=== PATIENT | female | born 1940 | race Caucasian/White ===

== ENCOUNTER 2018-08-26 09:09 | Inpatient (IN) | payer OTHER ==
[2018-08-20 18:32] VITALS: BMI 35.6
--- NOTE | 2018-08-26 07:19 | HP ---
Admitting History and Physical - Admission Chief Complaint: right knee osteoarthritis x years History of Present Illness: 78-year-old female presents in regard to her right knee. Long-standing history of right knee osteoarthritis. Patient complains of pain, limited range of motion , difficulty ambulating, and difficulty with activities of daily living. Patient has failed conservative treatment options including PO medications, activity modification, exercise program, and injections. At this point, patient would like to proceed with surgical intervention-right total knee arthroplasty MAKOplasty. History Source: Patient - Past Medical History Cardiovascular: Yes: HTN, Hyperlipdemia Psych: Yes: Depression Musculoskeletal: Yes: Osteoarthritis Endocrine: Yes: Diabetes Mellitus, Hypothyroidism - Past Surgical History Past Surgical History: Yes: Thoracotomy Additional Past Surgical History: see written history and physical. - Smoking History Smoking history: Never smoked Have you smoked in the past 12 months: No - Alcohol/Substance Use Hx Alcohol Use: No Home Medications - Allergies Allergies/Adverse Reactions: Allergies Allergy/AdvReac Type Severity Reaction Status Date / Time No Known Allergies Allergy Verified 08/20/18 18:32 - Home Medications Home Medications: Ambulatory Orders Atorvastatin Calcium [Lipitor] 10 mg PO HS 08/20/18 Cholecalciferol (Vitamin D3) [Vitamin D3] 2,000 unit PO DAILY 08/20/18 Escitalopram Oxalate [Lexapro -] 10 mg PO DAILY 08/20/18 Glipizide [Glucotrol Xl] 2.5 mg PO DAILY 08/20/18 Levothyroxine [Synthroid -] 75 mcg PO DAILY 08/20/18 Meloxicam 15 mg PO DAILY 08/20/18 Metoprolol Succinate [Toprol Xl] 25 mg PO DAILY 08/20/18 Review of Systems - Review of Systems Musculoskeletal: reports: Crepitus (righ knee), Decreased ROM (right knee), Joint Pain (right knee) Physical Examination Constitutional: Yes: Well Nourished, No Distress Eyes: Yes: Conjunctiva Clear HENT: Yes: Atraumatic, Normocephalic Neck: Yes: Supple Cardiovascular: Yes: Regular Rate and Rhythm Respiratory: Yes: Regular Gastrointestinal: Yes: Soft ...Rectal Exam: Yes: Deferred Musculoskeletal: Yes: Joint Stiffness (right knee), Joint Swelling (right knee) Assessment/Plan 78-year-old female presents in regard to her right knee. Long-standing history of right knee osteoarthritis. Patient complains of pain, limited range of motion , difficulty ambulating, and difficulty with activities of daily living. Patient has failed conservative treatment options including PO medications, activity modification, exercise program, and injections. At this point, patient would like to proceed with surgical intervention-right total knee arthroplasty MAKOplasty. pros, cons, risks, benefits, and alternatives of a right total knee arthroplasty were discussed with the patient at length. Patient confirms or understanding, and consents to proceed with a right total knee arthroplasty MAKOplasty.
[~2018-08-26 09:09] MED LIST: CEFAZOLIN 2 GM in DEXTROSE 5%-WATER - 50 ML IVPB ONE; TRANEXAMIC ACID 1000 MG/10 ML VIAL IVPUSH ONE
[2018-08-26] MEDS: oxyCODONE HCL 10 MG SUSTAINED ACTING TABLET PO ONE (09:50)
[2018-08-26] MEDS: CELECOXIB 200 MG CAPSULE PO ONE (09:50)
[2018-08-26] MEDS: PANTOPRAZOLE 40 MG TABLET (FP) PO ONE (09:50)
[2018-08-26] MEDS: GABAPENTIN 300 MG CAPSULE (FP) PO ONE (09:50)
[2018-08-26] MEDS ORDERED: VANCOMYCIN 1,000 MG VIAL (RESTRICTED TO ID ONLY) ONE (10:39)
[2018-08-26] MEDS ORDERED: ceFAZolin SODIUM 1 GM VIAL ONE ×2 (10:39→15:03)
[2018-08-26] MEDS ORDERED: TRANEXAMIC ACID 1000 MG/10 ML VIAL ONE ×2 (10:59→15:03)
[2018-08-26] MEDS ORDERED: BUPIVACAINE LIPOSOME/PF (EXPAREL) 266 MG/20 ML VIAL ONE (14:22)
[2018-08-26] MEDS ORDERED: SODIUM CHLORIDE 0.9% P/F 10 ML VIAL IJ ONE (14:22)
[2018-08-26] MEDS ORDERED: MIDAZOLAM HCL 2 MG/2 ML SINGLE DOSE VIAL ONE ×2 (14:22→16:01)
[2018-08-26] MEDS ORDERED: BUPIVACAINE HCL/PF 0.5% (5MG/ML) 10 ML VIAL ONE (15:01)
[2018-08-26] MEDS ORDERED: PROPOFOL 20 ML ONE (16:01)
--- NOTE | 2018-08-26 18:00 | OP ---
Operative Note - Note: Operative Date: 08/26/18 Pre-Operative Diagnosis: Right knee OA Operation: right YENNY TKA Post-Operative Diagnosis: Same as Pre-op Surgeon: Jong Collazo Director Of Restaurants: Nubia Marti Anesthesia: Spinal Estimated Blood Loss (mls): 150
[2018-08-26] MEDS ORDERED: KETOROLAC TROMETHAMINE 30 MG/1 ML VIAL ONE (18:01)
[2018-08-26] MEDS ORDERED: ONDANSETRON 4 MG/2 ML VIAL IVPUSH PRN ×2 (18:01→18:23)
[2018-08-26] MEDS ORDERED: oxyCODONE HCL 5 MG TABLET PO PRN ×2 (18:01)
[2018-08-26] MEDS ORDERED: PROMETHAZINE HCL 25 MG/1 ML VIAL IVPUSH PRN (18:01)
[2018-08-26] MEDS ORDERED: traMADol HCL 50 MG TABLET ONE (18:02)
[2018-08-26] MEDS ORDERED: ACETAMINOPHEN INJECTION 100 ML IVPB ONE (18:02)
[2018-08-26] MEDS: KETOROLAC TROMETHAMINE 30 MG/1 ML VIAL IVPUSH SCH ×2 (18:15→23:52)
[2018-08-26] MEDS ORDERED: ACETAMINOPHEN 1000 MG/100 ML VIAL (NON FORMULARY) IVPB ONE (18:21)
[2018-08-26] MEDS ORDERED: MAGNESIUM HYDROX 2400MG/30ML ORAL SUSPENSION 30 ML CUP PO PRN (18:23)
[2018-08-26] MEDS ORDERED: MAG HYDROX/AL HYDROX/SIMETH 30 ML UNIT-DOSE CUP PO PRN (18:23)
[2018-08-26] MEDS: traMADol HCL 50 MG TABLET PO SCH ×2 (18:25→23:51)
[2018-08-26] MEDS ORDERED: LACTATED RINGERS SOLUTION 1,000 ML IV SCH (18:30)
[2018-08-26] MEDS: CELECOXIB 200 MG CAPSULE PO SCH (21:18)
[2018-08-26] MEDS: GABAPENTIN 300 MG CAPSULE (FP) PO SCH (21:18)
[2018-08-26] MEDS: SENNOSIDES/DOCUSATE COMBO (SENNA PLUS) TABLET (UD) PO SCH (21:19)
[2018-08-26] MEDS: oxyCODONE HCL 10 MG SUSTAINED ACTING TABLET PO SCH (21:19)
[2018-08-26] MEDS: ASCORBIC ACID 500 MG TABLET (FP) PO SCH (21:19)
[2018-08-26] MEDS: ATORVASTATIN CA 10 MG TABLET (FP) PO SCH (21:19)
[2018-08-26] MEDS: ACETAMINOPHEN 325 MG TABLET (FP) PO SCH (23:51)
[2018-08-27] MEDS: CEFAZOLIN 2 GM/D5W 2 GM/50 ML ML IVPB SCH ×2 (01:02→10:00)
[2018-08-27] MEDS ORDERED: DEXAMETHASONE SOD PHOSPHATE 10 MG/1 ML VIAL IVPB ONE (02:00)
[2018-08-27] MEDS: traMADol HCL 50 MG TABLET PO SCH ×3 (06:38→19:06)
[2018-08-27] MEDS: LEVOTHYROXINE NA 75 MCG TABLET (FP) PO SCH (06:39)
[2018-08-27] MEDS: glipiZIDE-XL 2.5 MG TAB.ER.24 PO SCH (06:39)
[2018-08-27] MEDS: ACETAMINOPHEN 325 MG TABLET (FP) PO SCH ×3 (06:39→18:06)
[2018-08-27] MEDS: KETOROLAC TROMETHAMINE 30 MG/1 ML VIAL IVPUSH SCH ×2 (06:39→12:38)
[2018-08-27] MEDS: ASPIRIN 325 MG TABLET PO SCH (08:00)
[2018-08-27 08:07] LABS: ANION GAP 9 MMOL/L (8-16); BLOOD UREA NITROGEN 19 mg/dl (7-18); CALCIUM 8.9 mg/dl (8.5-10); CHLORIDE 105 mmol/L (98-107); CO2 20 mmol/L (21-32); CREATININE 0.7 mg/dl (0.55-1.3); GLUCOSE,RANDOM 240 mg/dl (74-106); POTASSIUM 4.2 mmol/L (3.5-5.1); SODIUM 134 mmol/L (136-145)
[2018-08-27 08:18] LABS: HEMATOCRIT 37.4 % (32.4-45.2); HEMOGLOBIN 12.6 GM/dl (10.7-15.3); MCH 30.6 pg (25.7-33.7); MCHC 33.8 g/dl (32.0-36.0); MEAN CELL VOLUME 90.7 fl (80-96); MEAN PLT VOLUME 8.3 fl (7.5-11.1); PLATELET COUNT 224 K/MM3 (134-434); RBC 4.12 M/mm3 (3.60-5.2); RDW 12.8 % (11.6-15.6); WHITE BLOOD COUNT 9.8 K/mm3 (4.0-10.8)
[2018-08-27] MEDS: CELECOXIB 200 MG CAPSULE PO SCH ×2 (09:26→21:53)
[2018-08-27] MEDS: ESCITALOPRAM OXALATE 10 MG TABLET (FP) PO SCH (09:26)
[2018-08-27] MEDS: GABAPENTIN 300 MG CAPSULE (FP) PO SCH ×2 (09:26→21:53)
[2018-08-27] MEDS: oxyCODONE HCL 10 MG SUSTAINED ACTING TABLET PO SCH ×2 (09:26→21:54)
[2018-08-27] MEDS: SENNOSIDES/DOCUSATE COMBO (SENNA PLUS) TABLET (UD) PO SCH ×2 (09:26→21:52)
[2018-08-27] MEDS: metoPROLOL SUCCINATE 25 MG TAB.SR.24H (FP) PO SCH (09:27)
[2018-08-27] MEDS: ASCORBIC ACID 500 MG TABLET (FP) PO SCH ×2 (09:28→21:53)
[2018-08-27] MEDS: RANITIDINE HCL 150 MG TABLET (FP) PO SCH (09:28)
[2018-08-27] MEDS ORDERED: PANTOPRAZOLE 40 MG TABLET (FP) PO SCH (10:00)
--- NOTE | 2018-08-27 17:46 | PN ---
Progress Note (short form) - Note Progress Note: S: Pt. without complaints O: 0/10 pain at rest and with ambulation A/P: POD#1 s/p right tkr 1. continue pain meds as ordered 2. no apparent anesthetic complications
[2018-08-27] MEDS: oxyCODONE HCL 10 MG SUSTAINED ACTING TABLET PO ONE (19:09)
[2018-08-27] MEDS: GABAPENTIN 300 MG CAPSULE (FP) PO ONE (19:09)
[2018-08-27] MEDS: PANTOPRAZOLE 40 MG TABLET (FP) PO ONE (19:09)
[2018-08-27] MEDS: CELECOXIB 200 MG CAPSULE PO ONE (19:09)
[2018-08-27] MEDS: MULTIVITAMINS (DAILY MVI) TABLET (FP) PO SCH (19:27)
--- NOTE | 2018-08-27 21:21 | PN ---
Progress Note (short form) - Note Progress Note: Pt seen and examined. Doing well. Afebrile Selected Entries 08/27/18 08/27/18 08/27/18 20:12 20:41 23:19 Temperature 97.7 F 97.6 F Pulse Rate 60 50 L Respiratory 20 18 Rate Blood Pressure 98/58 L 106/53 L Blood Pressure Supine Position O2 Sat by Pulse 96 Oximetry (%) Oxygen Delivery Room Air Method Laboratory Tests 08/27/18 08/27/18 06:52 06:52 WBC 9.8 Hgb 12.6 Hct 37.4 Plt Count 224 Sodium 134 L Potassium 4.2 Chloride 105 Carbon Dioxide 20 L Anion Gap 9 BUN 19 H Creatinine 0.7 Creat Clearance w eGFR > 60 Random Glucose 240 H Calcium 8.9 Gen: NAD RLE: c/d/i, NVID A/P 78yo female POD#1 s/p R TKA PT/OOB D/C home in AM
[2018-08-27] MEDS: ATORVASTATIN CA 10 MG TABLET (FP) PO SCH (21:53)
--- NOTE | 2018-08-27 23:52 | DS ---
Physical Examination Vital Signs: Vital Signs Temperature 97.6 F 08/27/18 23:19 Pulse Rate 50 L 08/27/18 23:19 Respiratory Rate 18 08/27/18 23:19 Blood Pressure 106/53 L 08/27/18 23:19 O2 Sat by Pulse Oximetry (%) 95 08/27/18 23:19 Labs: CBC, BMP 08/27/18 06:52 08/27/18 06:52 Discharge Summary Reason For Visit: RT KNEE ARTHRITIS Current Active Problems Osteoarthritis of right knee (Acute) Procedures: Principal: right YENNY TKA Hospital Course: Admitted for elective surgery. Procedure performed without complications. Pt received postoperative antibiotic prophylaxis and DVT ppx. Ambulated with physical therapy. Stable for discharge home with outpatient followup. Condition: Stable - Instructions Diet, Activity, Other Instructions: Dr. Collazo - Knee Replacement Instructions Keep the Aquacel dressing on until removed by Dr. Collazo in 10-14 days - it is antibacterial and waterproof and you can shower with it on. Call the office for a follow-up appointment with Dr. Collazo in 10-14 days. Take one Aspirin 325mg daily for 6 weeks to prevent blood clots in your legs. Continue taking Zantac daily for 6 weeks to protect against heartburn and ulcers. Take Cephalexin (antibiotic) 3x/day for 10 days to help prevent skin infection. Take Celebrex 200mg daily for 30 days to reduce swelling and inflammation. Take a multivitamin, stool softener, and extra Vitamin C supplement daily. For pain: *Mild pain (1-3/10): Take 1 Tramadol tablet every 4 hours as needed. Moderate pain (4-6/10): Take 1 Tramadol tablet and 1 Percocet tablet every 4 hours as needed. Severe pain (7-10/10): Take 1 Tramadol tablet and 2 Percocet tablets every 4 hours as needed. Activity: You can put as much weight on the operative leg as you want. Right after you get home, there will be a physical therapist coming to your house to help you walk around and bend/straighten your knee. After your follow-up appointment, you will be sent for more intensive outpatient physical therapy which will include machines and equipment that the home therapist cannot bring to your house. Always use a walker or cane for balance and to prevent falls. Expect to see swelling/bruising from the operative site all the way down to your toes. Wear the compression stocking on the operative side during the day to minimize how much swelling there is in your foot/ankle. Don't wear the stocking at night. You don't have to wear a stocking on the other side. Disposition: [facility]/HOME HEALTH CARE - Home Medications Comprehensive Discharge Medication List: Ambulatory Orders Atorvastatin Calcium [Lipitor] 10 mg PO HS 08/20/18 Cholecalciferol (Vitamin D3) [Vitamin D3] 2,000 unit PO DAILY 08/20/18 Escitalopram Oxalate [Lexapro -] 10 mg PO DAILY 08/20/18 Glipizide [Glucotrol Xl] 2.5 mg PO DAILY 08/20/18 Levothyroxine [Synthroid -] 75 mcg PO DAILY 08/20/18 Metoprolol Succinate [Toprol Xl] 25 mg PO DAILY 08/20/18 Ascorbic Acid [Vitamin C -] 500 mg PO BID tablet 08/27/18 Aspirin [ASA -] 325 mg PO DAILY@0800 tablet 08/27/18 Celecoxib [CeleBREX -] 200 mg PO DAILY #30 capsule 08/27/18 Cephalexin Monohydrate [Keflex -] 500 mg PO TID #30 capsule 08/27/18 Multivitamins [Multivit ([facility] Formulary)] 1 tab PO DAILY tab 08/27/18 Oxycodone HCl/Acetaminophen [Percocet 5-325 mg Tablet] 1 - 2 tab PO Q4H PRN #60 tablet MDD 10 08/27/18 Ranitidine [Zantac -] 150 mg PO DAILY #40 tablet 08/27/18 Sennosides/Docusate Sodium [Pericolace -] 1 tablet PO BID tablet 08/27/18 traMADol HCL [Ultram -] 50 mg PO Q4H PRN #42 tablet MDD 6 08/27/18
[2018-08-28] MEDS: ACETAMINOPHEN 325 MG TABLET (FP) PO SCH ×3 (00:26→11:54)
[2018-08-28] MEDS: traMADol HCL 50 MG TABLET PO SCH ×3 (00:27→11:55)
[2018-08-28 06:24] VITALS: TEMP 97.5
[2018-08-28] MEDS: LEVOTHYROXINE NA 75 MCG TABLET (FP) PO SCH (06:34)
[2018-08-28] MEDS: glipiZIDE-XL 2.5 MG TAB.ER.24 PO SCH (06:34)
[2018-08-28 08:06] LABS: HEMATOCRIT 31.8 % (32.4-45.2); HEMOGLOBIN 10.5 GM/dl (10.7-15.3); MCH 29.9 pg (25.7-33.7); MEAN CELL VOLUME 90.7 fl (80-96); MEAN PLT VOLUME 8.1 fl (7.5-11.1); PLATELET COUNT 213 K/MM3 (134-434); RBC 3.51 M/mm3 (3.60-5.2); RDW 12.7 % (11.6-15.6); WHITE BLOOD COUNT 10.1 K/mm3 (4.0-10.8)
[2018-08-28] MEDS: ASPIRIN 325 MG TABLET PO SCH (08:15)
[2018-08-28 09:21] VITALS: BP 113/50; PULSE 60
[2018-08-28] MEDS: SENNOSIDES/DOCUSATE COMBO (SENNA PLUS) TABLET (UD) PO SCH (09:23)
[2018-08-28] MEDS: CELECOXIB 200 MG CAPSULE PO SCH (09:23)
[2018-08-28] MEDS: ASCORBIC ACID 500 MG TABLET (FP) PO SCH (09:23)
[2018-08-28] MEDS: RANITIDINE HCL 150 MG TABLET (FP) PO SCH (09:23)
[2018-08-28] MEDS: GABAPENTIN 300 MG CAPSULE (FP) PO SCH (09:23)
[2018-08-28] MEDS: metoPROLOL SUCCINATE 25 MG TAB.SR.24H (FP) PO SCH (09:23)
[2018-08-28] MEDS: MULTIVITAMINS (DAILY MVI) TABLET (FP) PO SCH (09:23)
[2018-08-28] MEDS: ESCITALOPRAM OXALATE 10 MG TABLET (FP) PO SCH (09:23)
[2018-08-28] MEDS: oxyCODONE HCL 10 MG SUSTAINED ACTING TABLET PO SCH (09:24)
--- NOTE | 2018-08-28 16:43 | PATH ---
Surgical Pathology Report Patient Name: MARTINA PATE Med. Rec. #: [id number] /Age/Gender: 1940 (Age: 78) / F Account: [id number] Location: REPLACED BY [facility] Taken: 08/26/2018 Received: 08/26/2018 Reported: 08/28/2018 Physicians: Jong Collazo M.D. Specimen(s) Received RIGHT KNEE BONE Clinical History Right knee osteoarthritis Final Diagnosis BONE, KNEE, RIGHT, TOTAL KNEE REPLACEMENT MAKOPLASTY: BONE WITH DEGENERATIVE JOINT DISEASE, DENSE FIBROCONNECTIVE TISSUE, FIBROADIPOSE TISSUE, AND REACTIVE SYNOVIUM. Electronically Signed Mallorie Rolle M.D. Gross Description Received in formalin labeled "right knee bones," is a 15.0 x 10.5 x 2.0 cm aggregate of multiple portions of bone and soft tissue, consistent with knee bones. The tibial plateau measures 7.0 x 5.5 x 1.8 cm. There is a 1.6 cm in greatest dimension area of eburnation present. The remaining articular surfaces are huitron-yellow and diffusely granular. The underlying trabecular bone is yellow and hard. Paint Brush Maker sections are submitted in one cassette, following decalcification. 08/27/201808/27/2018
== END 2018-08-28 12:50 | disposition home health service (06) | DRG 302 ==
LOC: FM/S 09:09
PROVIDERS: ADMIT Student in an Organized Health Care Education/Training Program; ATTEND Student in an Organized Health Care Education/Training Program
PROC: 8E0Y0CZ Robotic Assisted Procedure of Lower Extremity, Open Approach (ICD-10-PCS; 2018-08-26)
PROC: 0SRC0JZ Replacement of Right Knee Joint with Synthetic Substitute, Open Approach (ICD-10-PCS; principal; 2018-08-26 15:38)
DX: M17.11 Unilateral primary osteoarthritis, right knee (principal); I10 Essential (primary) hypertension; Z79.84 Long term (current) use of oral hypoglycemic drugs; E11.9 Type 2 diabetes mellitus without complications; E03.9 Hypothyroidism, unspecified; E78.5 Hyperlipidemia, unspecified
CPT/HCPCS: 36415; 73560-TC-RT-FY; 80048; 82962; 85027; 88305-TC; 88311-TC; 94760; 97116-GP; 97162-GP; J0131; J1100

== ENCOUNTER 2019-01-27 09:19 | Emergency (ER) | payer OTHER ==
[2019-01-27 09:38] VITALS: BMI 35.4
--- NOTE | 2019-01-27 09:48 | PDOC ---
History of Present Illness - General Chief Complaint: Injury Stated Complaint: FALL HIT HEAD,RT ELBOW Time Seen by Provider: 01/27/19 09:23 - History of Present Illness Initial Comments: 01/27/19 12:08 Chief complaint: Injuries to head and right arm HPI: Tripped on steps, fell and struck her right occiput and injured right shoulde. no LOC. No antecedent lightheadedness, dizziness, vertigo, or feeling faint. No subsequent drowsiness, confusion, or other mental status changes Review of syst: No chest pain, shortness of breath, abdominal pain, nausea, vomiting, diarrhea, visual or focal neurologic symptoms, unsteadiness of gait. Remainder of systems reviewed and noncontributory PMH: Extensive and reviewed from old record including CAD, elevated cholesterol , prediabetes,hypothyroid, knee replacement, anxiety, depression. Social/family: Stable home, lives with , cares for self. No tobacco, alcohol, or drugs. Physical exam: Alert and oriented, well-developed well-nourished, no acute distress, cooperative Afebrile, vital signs normal 4 cm hematoma right occipital scalp, minor abrasion, no laceration. No depression or crepitus palpable PERRLA 4 mm, fundi benign, sharp disc margins, good central venous pulsations. EOMs full without diplopia. Visual johnston int to confrontation. Facial bones without tenderness or deformity. ENT clear Neck without tenderness or deformity, good range of without pain Chest clear, full breath sounds bilaterally, no rib cage or chest wall deformity or tenderness CV S1 and S2 normal without murmur rub or gallop pulses full and symmetric no JVD or edema no bruits Abdomen soft nontender no mass or organomegaly Neurological C2 to 12 intact Strength full and symmetric. No focal sensory or motor deficits. Cerebellar function intact. Gait stable and unimpaired Extremities: Swelling right wrist without significant deformity. pulses intact. No distal sensory or motor deficits. forearm, elbow, humerus, and hermelindo without visible or palpable trauma, although she complains of pain in the mid humerus. Impression: Significant scalp hematoma, but without signs of intracranial bleed or other significant intracranial trauma. Probable wrist fracture. Plan: Head CT, x-rays of the wrist and humerus, further evaluation and treatment depending on results. Pain control. Observe. Past History - Past Medical History Allergies/Adverse Reactions: Allergies Allergy/AdvReac Type Severity Reaction Status Date / Time No Known Allergies Allergy Verified 01/27/19 09:20 Home Medications: Ambulatory Orders Atorvastatin Calcium [Lipitor] 10 mg PO HS 08/20/18 Cholecalciferol (Vitamin D3) [Vitamin D3] 2,000 unit PO DAILY 08/20/18 Escitalopram Oxalate [Lexapro -] 10 mg PO DAILY 08/20/18 Glipizide [Glucotrol Xl] 2.5 mg PO DAILY 08/20/18 Levothyroxine [Synthroid -] 75 mcg PO DAILY 08/20/18 Ascorbic Acid [Vitamin C -] 500 mg PO BID tablet 08/27/18 Anemia: Yes (iron defficiency) Asthma: No Cancer: No Cardiac Disorders: Yes (SOB-angioplasty done-Toprol -no other tx) CVA: No COPD: No CHF: No Dementia: No Diabetes: Yes GI Disorders: No Disorders: No HTN: No Hypercholesterolemia: Yes Liver Disease: No Seizures: No Thyroid Disease: Yes - Surgical History Abdominal Surgery: No Appendectomy: No Cardiac Surgery: Yes (angioplasty) Cholecystectomy: No Lung Surgery: No Neurologic Surgery: Yes (lumbar laminectomy) Orthopedic Surgery: Yes (R knee arthroplasty) - Suicide/Smoking/Psychosocial Hx Smoking History: Never smoked Have you smoked in the past 12 months: No Hx Alcohol Use: No Drug/Substance Use Hx: No Substance Use Type: None Hx Substance Use Treatment: No *Physical Exam - Vital Signs Last Vital Signs Temp Pulse Resp BP Pulse Ox 98.1 F 62 16 163/85 100 01/27/19 09:19 01/27/19 09:19 01/27/19 09:19 01/27/19 09:19 01/27/19 09:19 Medical Decision Making - Medical Decision Making 01/27/19 12:43 CT: Negative for intracranial trauma Right wrist: Distal radius fracture, minimal displacement. Procedure note: Volar splint Volar splint applied. Good pulses, capillary refill. No distal numb. Good finger Patient more comfortable. Sling applied. Sent to Dr. Gruber office for follow-up as arranged phone. Patient fully ambulatory and in no significant pain or other distress at discharge. *DC/Admit/Observation/Transfer Diagnosis at time of Disposition: Head injury Qualifiers: Encounter type: initial encounter Qualified Code(s): S09.90XA - Unspecified injury of head, initial encounter Fracture of wrist Qualifiers: Encounter type: initial encounter Fracture type: closed Laterality: right Qualified Code(s): S62.101A - Fracture of unspecified carpal bone, right wrist, initial encounter for closed fracture - Discharge Dispostion Disposition: HOME Condition at time of disposition: Improved Decision to Admit order: No - Referrals Referrals: Cipriano Gruber MD [Staff Physician] - - Patient Instructions Printed Discharge Instructions: DI for Wrist Fracture, DI for Closed Head Injury Additional Instructions: see orthopedist today as directed for further treatment. - Post Discharge Activity
[2019-01-27] MEDS ORDERED: ACETAMINOPHEN 325 MG TABLET (FP) PO ONE (10:21)
[2019-01-27] MEDS ORDERED: ACETAMINOPHEN 325 MG TABLET (FP) ONE (10:22)
[2019-01-27 12:19] VITALS: BP 147/85; PULSE 57; TEMP 98.3
[2019-01-27] MEDS ORDERED: IBUPROFEN 400 MG TABLET (FP) PO ONE ×2 (12:30→12:31)
== END 2019-01-27 12:50 | disposition home or self-care (01) ==
LOC: FER 09:19
PROC: 2W3CX1Z Immobilization of Right Lower Arm using Splint (ICD-10-PCS; principal; 2019-01-27)
DX: S62.101A Fracture of unspecified carpal bone, right wrist, initial encounter for closed fracture (principal); S09.90XA Unspecified injury of head, initial encounter; W18.39XA Other fall on same level, initial encounter; Y93.89 Activity, other specified; Y92.89 Other specified places as the place of occurrence of the external cause; E78.00 Pure hypercholesterolemia, unspecified; E07.9 Disorder of thyroid, unspecified; D64.89 Other specified anemias; E11.9 Type 2 diabetes mellitus without complications
CPT/HCPCS: 29125; 70450-TC; 72050-TC-FY; 73060-TC-RT-FY; 73110-TC-RT-FY; 99282-25

== ENCOUNTER 2020-03-15 11:28 | Inpatient (IN) | payer OTHER ==
[2020-03-15 12:55] VITALS: BMI 35.5
[2020-03-15] MEDS ORDERED: METOPROLOL TARTRATE 5 MG/5 ML VIAL IVPUSH ONE (12:57)
[2020-03-15] MEDS ORDERED: ACETAMINOPHEN 1000 MG/100 ML VIAL (NON FORMULARY) IVPB ONE (12:57)
[2020-03-15 13:06] LABS: EOS % 1.2 % (0-4.5); HEMATOCRIT 44.5 % (32.4-45.2); LYMPH % 34.6 % (8-40); MCH 30.3 pg (25.7-33.7); MCHC 33.6 g/dl (32.0-36.0); MEAN PLT VOLUME 7.9 fl (7.5-11.1); MONO % 6.5 % (3.8-10.2); NEUT % 56.7 % (42.8-82.8); PLATELET COUNT 249 K/MM3 (134-434); RBC 4.94 M/mm3 (3.60-5.2); RDW 13.6 % (11.6-15.6); WHITE BLOOD COUNT 7.7 K/mm3 (4.0-10.0)
[2020-03-15] MEDS ORDERED: METOPROLOL TARTRATE 5 MG/5 ML VIAL ONE (13:11)
[2020-03-15] MEDS ORDERED: ACETAMINOPHEN INJECTION 100 ML IVPB ONE (13:11)
[2020-03-15 13:12] LABS: INR 1.05 (0.83-1.09); PROTHROMBIN TIME (PATIENT) 12.4 SEC (9.7-13.0)
[2020-03-15 14:00] LABS: ALBUMIN 3.7 g/dl (3.4-5.0); BILIRUBIN,TOTAL 0.8 mg/dL (0.2-1); BLOOD UREA NITROGEN 17.4 mg/dL (7-18); CALCIUM 9.2 mg/dL (8.5-10.1); CREATININE 0.8 mg/dL (0.55-1.3); POTASSIUM 4.6 mmol/L (3.5-5.1); TOT PROT 6.9 g/dl (6.4-8.2)
[2020-03-15] MEDS ORDERED: METOPROLOL TARTRATE 25 MG TABLET (FP) PO ONE (14:21)
--- NOTE | 2020-03-15 14:24 | PDOC ---
History of Present Illness - General Chief Complaint: Irregular Heart Beat Stated Complaint: Irregular Heart Beat Time Seen by Provider: 03/15/20 13:00 History Source: Patient Exam Limitations: No Limitations Past History - Medical History Allergies/Adverse Reactions: Allergies Allergy/AdvReac Type Severity Reaction Status Date / Time No Known Allergies Allergy Verified 03/15/20 12:54 Home Medications: Ambulatory Orders Atorvastatin Calcium [Lipitor] 10 mg PO HS 08/20/18 Cholecalciferol (Vitamin D3) [Vitamin D3] 2,000 unit PO DAILY 08/20/18 Escitalopram Oxalate [Lexapro -] 10 mg PO DAILY 08/20/18 Glipizide [Glucotrol Xl] 2.5 mg PO DAILY 08/20/18 Levothyroxine [Synthroid -] 75 mcg PO DAILY 08/20/18 Ascorbic Acid [Vitamin C -] 500 mg PO BID tablet 08/27/18 Anemia: Yes (iron defficiency) Asthma: No Cancer: No Cardiac Disorders: Yes (SOB-angioplasty done-Toprol -no other tx) CVA: No COPD: No CHF: No Dementia: No Diabetes: Yes GI Disorders: No Disorders: No HTN: No Hypercholesterolemia: Yes Liver Disease: No Seizures: No Thyroid Disease: Yes - Surgical History Abdominal Surgery: No Appendectomy: No Cardiac Surgery: Yes (angioplasty) Cholecystectomy: No Lung Surgery: No Neurologic Surgery: Yes (lumbar laminectomy) Orthopedic Surgery: Yes (R knee arthroplasty) - Reproductive History Is Patient Now?: No - Psycho-Social/Smoking History Smoking History: Current every day smoker Have you smoked in the past 12 months: No Information on smoking cessation initiated: No - Substance Abuse Hx (Audit-C & DAST Scrn) How often the patient has a drink containing alcohol: Never Score: In Men: 4 or > Positive; In Women: 3 or > Positive: 0 Screen Result (Pos requires Nsg. Audit-10AR): Negative In the last yr the pt used illegal drug/Rx for NonMed reason: No Score: Yes response is considered Positive: 0 Screen Result (Positive result requires Nsg. DAST-10): Negative Cardiac Specific PMH - Complaint Specific PMHX Pacemaker: No *Physical Exam - Vital Signs Last Vital Signs Temp Pulse Resp BP Pulse Ox 98.1 F 84 19 101/64 97 03/15/20 13:59 03/15/20 13:59 03/15/20 13:59 03/15/20 13:59 03/15/20 13:59 ED Treatment Course - LABORATORY CBC & Chemistry Diagram: 03/15/20 12:53 03/15/20 12:53 - ADDITIONAL ORDERS Additional order review: Laboratory Results 03/15/20 03/15/20 03/15/20 12:53 12:53 12:53 PT with INR 12.40 INR 1.05 PTT (Actin FS) 42.0 H Sodium 140 Potassium 4.6 Chloride 107 Carbon Dioxide 22 Anion Gap 10 BUN 17.4 Creatinine 0.8 Est GFR (CKD-EPI)AfAm 81.27 Est GFR (CKD-EPI)NonAf 70.12 Random Glucose 228 H Calcium 9.2 Total Bilirubin 0.8 AST 20 ALT 27 Alkaline Phosphatase 119 H Creatine Kinase 109 Troponin I 0.02 Total Protein 6.9 Albumin 3.7 03/15/20 12:53 RBC 4.94 MCV 90.0 MCHC 33.6 RDW 13.6 MPV 7.9 Neutrophils % 56.7 Lymphocytes % 34.6 Monocytes % 6.5 Eosinophils % 1.2 Basophils % 1.0 - RADIOLOGY Radiology Studies Ordered: Category Date Time Status CHEST X-RAY PORTABLE* [RAD] Stat Radiology 03/15/20 12:57 Completed - Medications Given in the ED: ED Medications Discontinued Medications Generic Name Dose Route Start Last Admin Trade Name Freq PRN Reason Stop Dose Admin Acetaminophen 1,000 mg 03/15/20 12:57 03/15/20 13:19 Ofirmev Injection - IVPB 03/15/20 12:58 1,000 mg ONCE ONE Administration Metoprolol Tartrate 5 mg 03/15/20 12:57 03/15/20 13:19 Lopressor Injection - IVPUSH 03/15/20 12:58 5 mg ONCE ONE Administration
[2020-03-15] MEDS ORDERED: METOPROLOL TARTRATE 25 MG TABLET (FP) ONE (14:34)
--- NOTE | 2020-03-15 14:59 | PDOC ---
Documentation entered by Prisca Caldwell SCRIBE, acting as scribe for Zeinab Diaz MD. Zeinab Diaz MD: This documentation has been prepared by the wendyibe, Prisca Caldwell SCRIBE, under my direction and personally reviewed by me in its entirety. I confirm that the documentation accurately reflects all work, treatment, procedures, and medical decision making performed by me. Attending Attestation - Resident Resident Name: Nano Rocha - ED Attending Attestation I have performed the following: I have examined & evaluated the patient, The case was reviewed & discussed with the resident, I agree w/resident's findings & plan, Exceptions are as noted - HPI HPI: 03/15/20 13:19 Patient is a 79 year old female with a significant past medical history of elevated cholesterol, prediabetes, hypothyroid, anxiety, depression, right knee osteoarthritis, and knee replacement, who presents to the ED with palpitations and lightheadedness for the past day, as well as SOB, chest pain, and diaphoresis which started overnight and actually awakened her from sleep. She characterizes the chest pain like pressure. She was initially seen at [facility] for these symptoms, was found to be in A-fib with RVR on their EKG, and was sent here to the ED for further evaluation. - Physicial Exam PE: 03/15/20 13:20 GENERAL: elderly, very pleasant, nontoxic-appearing, A/Ox4, no distress, answers questions appropriately HEENT: PERRLA, EOMI, moist mucous membranes NECK/BACK: no midline ttp, no spinal stepoff or deformity, no hematoma, full ROM, neck supple CARDIOVASCULAR: irregularly irregular and a bit tachycardic, no MGR, strong peripheral pulses, capillary refill <2 seconds, extremities wwp, no edema LUNGS/RESPIRATORY: no respiratory distress, CTAB GI/ABDOMEN: symmetric [id number], normoactive BS, soft, no ttp, no midline pulsatile masses : no CVA tenderness MSK/EXTREMITIES: no muscle atrophy, no acute deformity SKIN: warm and dry, no pallor, no jaundice, no rash, no pathologic-appearing bruising, no skin breakdown, no cuts, no lesions NEUROLOGICAL: GCS 15, CN II-XII grossly intact, 5/5 strength proximally and distally, no facial droop - Medical Decision Making 79YOF p/w rapid palpitations with EKG c/f A-fib with RVR. Initial Vital Signs Temp Pulse Resp BP Pulse Ox 98.0 F 120 H 18 133/91 100 03/15/20 12:00 03/15/20 12:00 03/15/20 12:00 03/15/20 12:00 03/15/20 12:00 DDX IBNLT: most likely A-fib versus A-flutter, precipitated by any number of factors. Considered are ischemia (ACS), structural heart condition (MVP, mitral stenosis, atrial enlargement), hypoxia, anemia, bronchitis/PNA, sepsis/shock, metabolic, thyroid condition, medication effect, etc. Unlikely PE, PTX, tamponade, etc as the clinical picture does not fit these diagnoses. Provider Orders Category Date Time Status Admission Certification Once Admission 03/15/20 17:22 Completed Admit for Inpatient Services ONCE Admission 03/15/20 17:22 Completed Decision to Admit to Hospital Routine Admission 03/15/20 14:21 Active EKG [ELECTROCARDIOGRAM] [CARD] Stat Cardiology 03/15/20 12:16 Completed BGM (Blood Glucose Monitoring) ACHS Care 03/15/20 17:21 Completed Cardiac Monitoring Continuous Care 03/15/20 17:22 Completed Cardiac Monitoring Continuous Care 03/15/20 17:22 Completed EKG needed NOW Care 03/15/20 12:16 Completed Early ambulation QS Care 03/15/20 17:22 Completed Insert Saline Lock NOW Care 03/15/20 12:45 Completed Intake and Output 0600,1500,2300 Care 03/15/20 17:21 Completed Isolation Precautions As directed Care 03/15/20 14:48 Completed Vital Signs Q4H Care 03/15/20 17:22 Completed Physician Consultation Physician 1 Cons 03/15/20 17:21 Ordered Sodium Controlled Diet [DT] Diet 03/15/20 Dinner Completed BASIC METABOLIC PANEL Routine Lab 03/16/20 06:12 Completed CARDIAC PROFILE ([facility]) Stat Lab 03/15/20 12:53 Completed CBC WITH DIFFERENTIAL Routine Lab 03/16/20 06:12 Completed CBC WITH DIFFERENTIAL Stat Lab 03/15/20 12:53 Completed COMP METABOLIC PANEL Stat Lab 03/15/20 12:53 Completed COMP METABOLIC PANEL Stat Lab 03/15/20 17:00 Completed COVID-19 Stat Lab 03/15/20 14:48 Completed FREE T4 Stat Lab 03/15/20 12:53 Completed HEMOGLOBIN A1C Routine Lab 03/16/20 06:12 Completed MAGNESIUM Routine Lab 03/16/20 06:12 Completed PHOSPHOROUS Routine Lab 03/16/20 06:12 Completed PT/INR (PROTHROMBIN TIME) Stat Lab 03/15/20 12:53 Completed PTT [ACTIVATED PTT] Stat Lab 03/15/20 12:53 Completed THYROID STIMULATING HORMONE Stat Lab 03/15/20 12:53 Completed TROPONIN I ([facility]) Stat Lab 03/15/20 17:00 Completed Acetaminophen Injection [Ofirmev Injection -] Medication 03/15/20 12:57 Discon tinued 1,000 mg IVPB ONCE ONE Acetaminophen Injection [Ofirmev Injection -] 100 ml Medication 03/15/20 13:11 Discontinued IVPB UD Metoprolol Tartrate Injection [Lopressor Injection -] Medication 03/15/20 13:11 Discontinued 10 mg .ROUTE .STK-MED ONE Metoprolol Tartrate Injection [Lopressor Injection -] Medication 03/15/20 12:57 Discontinued 5 mg IVPUSH ONCE ONE Metoprolol Tartrate [Lopressor -] Medication 03/15/20 14:34 Discontinued 25 mg .ROUTE .STK-MED ONE Metoprolol Tartrate [Lopressor -] Medication 03/15/20 14:21 Discontinued 25 mg PO ONCE ONE VTE Risk Level/Orders Routine Phy Order 03/15/20 17:22 Ordered CHEST PA & LAT [RAD] Stat Radiology 03/15/20 17:22 Completed CHEST X-RAY PORTABLE* [RAD] Stat Radiology 03/15/20 12:57 Completed Reminder: new phy cons See Order Reminders 03/15/20 17:25 Completed Lab Results WBC 7.7 K/mm3 (4.0-10.0) 03/15/20 12:53 RBC 4.94 M/mm3 (3.60-5.2) 03/15/20 12:53 Hgb 15.0 GM/dL (10.7-15.3) 03/15/20 12:53 Hct 44.5 % (32.4-45.2) 03/15/20 12:53 MCV 90.0 fl (80-96) 03/15/20 12:53 MCH 30.3 pg (25.7-33.7) 03/15/20 12:53 MCHC 33.6 g/dl (32.0-36.0) 03/15/20 12:53 RDW 13.6 % (11.6-15.6) 03/15/20 12:53 Plt Count 249 K/MM3 (134-434) 03/15/20 12:53 MPV 7.9 fl (7.5-11.1) 03/15/20 12:53 Absolute Neuts (auto) 4.3 K/mm3 (1.5-8.0) 03/15/20 12:53 Neutrophils % 56.7 % (42.8-82.8) 03/15/20 12:53 Lymphocytes % 34.6 % (8-40) 03/15/20 12:53 Monocytes % 6.5 % (3.8-10.2) 03/15/20 12:53 Eosinophils % 1.2 % (0-4.5) 03/15/20 12:53 Basophils % 1.0 % (0-2.0) 03/15/20 12:53 Nucleated RBC % 0 % (0-0) 03/15/20 12:53 PT with INR 12.40 SEC (9.7-13.0) 03/15/20 12:53 INR 1.05 (0.83-1.09) 03/15/20 12:53 PTT (Actin FS) 42.0 SECONDS (25.2-36.5) H 03/15/20 12:53 Sodium 139 mmol/L (136-145) 03/15/20 17:00 Potassium 4.5 mmol/L (3.5-5.1) 03/15/20 17:00 Chloride 108 mmol/L (98-107) H 03/15/20 17:00 Carbon Dioxide 20 mmol/L (21-32) L 03/15/20 17:00 Anion Gap 12 MMOL/L (8-16) 03/15/20 17:00 BUN 17.9 mg/dL (7-18) 03/15/20 17:00 Creatinine 0.8 mg/dL (0.55-1.3) 03/15/20 17:00 Est GFR (CKD-EPI)AfAm 81.27 03/15/20 17:00 Est GFR (CKD-EPI)NonAf 70.12 03/15/20 17:00 Random Glucose 189 mg/dL (74-106) H 03/15/20 17:00 Calcium 9.2 mg/dL (8.5-10.1) 03/15/20 17:00 Total Bilirubin 0.8 mg/dL (0.2-1) 03/15/20 17:00 AST 18 U/L (15-37) 03/15/20 17:00 ALT 24 U/L (13-61) 03/15/20 17:00 Alkaline Phosphatase 120 U/L (45-117) H 03/15/20 17:00 Creatine Kinase 109 U/L (26-192) 03/15/20 12:53 Troponin I 0.02 ng/ml (0.00-0.05) 03/15/20 17:00 Total Protein 6.8 g/dl (6.4-8.2) 03/15/20 17:00 Albumin 3.7 g/dl (3.4-5.0) 03/15/20 17:00 TSH 2.16 uIU/ml (0.358-3.74) 03/15/20 12:53 Free T4 1.36 ng/dl (0.76-1.46) 03/15/20 12:53 Patient has been given metoprolol IV push + PO. Also given Ofirmev. She has been symptomatic and will need admission for chest pain, SOB, diaphoresis. Admission per resident note. Heart Score/ECG Review - History History: Moderately suspicious - Electrocardiogram EKG: Non specific repolarization disturbance - Age Age: >/= 65 - Risk Factors Risk Factors Heart Score: Yes Hx Hypercholesterolemia, Yes Hx Diabetes, Yes Hx Obesity Based on the list above the patient has:: >/=3 risk factors or Hx atherosclerotic disease - Troponin Troponin: </= normal limit - Score Heart Score - Total: 6 #1 03/15/20 12:37 A-fib with rVR, rate 120, normal axis, isolated TWI in III, no ST elevations. Discharge - Discharge Information Problems reviewed: Yes Clinical Impression/Diagnosis: A-fib, Chest pain Condition: Guarded - Admission Yes - Follow up/Referral - Patient Discharge Instructions - Post Discharge Activity
--- NOTE | 2020-03-15 16:01 | HP ---
<Guillermo Weldon - Last Filed: 03/15/20 18:50> CHIEF COMPLAINT: chest heaviness PCP: HISTORY OF PRESENT ILLNESS: 79F w/ pmh of HTN, HLD, NIDDM, Went to [facility] due chest heaviness, like a "stone was on my chest" with palpitations. Was waking up in bed, ~4am. Thinks it was 9 of 10 at the time. Took acetaminophen and ASA 325mg. Experienced sweating feeling warmth. Wanted to avoid the crowded ED, so went to [facility]. Sent from [facility] for Afib with RVR. Since been in the ED, thinks the heaviness is now 5-6 of 10. 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 Has had an abnormal stress then then cardiac catheterization ~8ys ago, at [facility] that was negative. Doesn't check blood sugar regularly. Didn't take her Gliperzide for 2mo in Jul-September due the COVID ER course was notable for: (1) Afeb, HR to 130s, BP 100-130s/60-90s (2) Troponin 0.02 TSH 2.16 (3) EKG: Afib + RVR(HR 120s), (4) metoprolol tartrate 5mg IVP x1, metoprolol tartrate 25mg PO x1, Ofirmev Recent Travel: PAST MEDICAL HISTORY: PAST SURGICAL HISTORY: lower back surgery for "pinched nerve" knee replacement Social History: Smoking: Alcohol: Drugs: Allergies No Known Allergies Allergy (Verified 03/15/20 12:54) HOME MEDICATIONS: Home Medications Medication Instructions Recorded Atorvastatin Calcium [Lipitor] 10 mg PO HS 08/20/18 Cholecalciferol (Vitamin D3) 2,000 unit PO DAILY 08/20/18 [Vitamin D3] Escitalopram Oxalate [Lexapro -] 10 mg PO DAILY 08/20/18 Glipizide [Glucotrol Xl] 2.5 mg PO DAILY 08/20/18 Levothyroxine [Synthroid -] 75 mcg PO DAILY 08/20/18 Ascorbic Acid [Vitamin C -] 500 mg PO BID tablet 08/27/18 REVIEW OF SYSTEMS CONSTITUTIONAL: Absent: fever, chills, diaphoresis, generalized weakness, malaise, loss of appetite, weight change HEENT: Absent: rhinorrhea, nasal congestion, throat pain, throat swelling, difficulty swallowing, mouth swelling, ear pain, eye pain, visual changes CARDIOVASCULAR: Absent: chest pain, syncope, palpitations, irregular heart rate, lightheadedness, peripheral edema RESPIRATORY: Absent: cough, shortness of breath, dyspnea with exertion, orthopnea, wheezing, stridor, hemoptysis GASTROINTESTINAL: Absent: abdominal pain, abdominal distension, nausea, vomiting, diarrhea, constipation, melena, hematochezia GENITOURINARY: Absent: dysuria, frequency, urgency, hesitancy, hematuria, flank pain, genital pain MUSCULOSKELETAL: Absent: myalgia, arthralgia, joint swelling, back pain, neck pain SKIN: Absent: rash, itching, pallor HEMATOLOGIC/IMMUNOLOGIC: Absent: easy bleeding, easy bruising, lymphadenopathy, frequent infections ENDOCRINE: Absent: unexplained weight gain, unexplained weight loss, heat intolerance, cold intolerance NEUROLOGIC: Absent: headache, focal weakness or paresthesias, dizziness, unsteady gait, seizure, mental status changes, bladder or bowel incontinence PSYCHIATRIC: Absent: anxiety, depression, suicidal or homicidal ideation, hallucinations. PHYSICAL EXAMINATION Vital Signs - 24 hr 03/15/20 03/15/20 03/15/20 12:00 13:19 13:59 Temperature 98.0 F 98.1 F Pulse Rate 120 H Pulse Rate [ 84 Apical] Respiratory 18 19 Rate Blood Pressure 133/91 133/91 Blood Pressure 101/64 [Left Arm] O2 Sat by Pulse 100 97 Oximetry (%) GENERAL: Awake, alert, and fully oriented, in no acute distress. HEAD: Normal with no signs of trauma. EYES: Pupils equal, round and reactive to light, extraocular movements intact, sclera anicteric, conjunctiva clear. No lid lag. EARS, NOSE, THROAT: Ears normal, nares patent, oropharynx clear without exudates. Moist mucous membranes. NECK: Normal range of motion, supple without lymphadenopathy, JVD, or masses. LUNGS: Breath sounds equal, clear to auscultation bilaterally. No wheezes, and no crackles. No accessory muscle use. HEART: Regular rate and rhythm, normal S1 and S2 without murmur, rub or gallop. ABDOMEN: Soft, nontender, not distended, normoactive bowel sounds, no guarding, no rebound, no masses. No hepatomegaly or splenomegaly. MUSCULOSKELETAL: Normal range of motion at all joints. No bony deformities or tenderness. No CVA tenderness. UPPER EXTREMITIES: 2+ pulses, warm, well-perfused. No cyanosis. No clubbing. No peripheral edema. LOWER EXTREMITIES: 2+ pulses, warm, well-perfused. No calf tenderness. No peripheral edema. NEUROLOGICAL: Cranial nerves II-XII intact. Normal speech. Normal gait. PSYCHIATRIC: Cooperative. Good eye contact. Appropriate mood and affect. SKIN: Warm, dry, normal turgor, no rashes or lesions noted, normal capillary refill. Laboratory Results - last 24 hr 03/15/20 03/15/20 03/15/20 12:53 12:53 12:53 WBC 7.7 RBC 4.94 Hgb 15.0 Hct 44.5 MCV 90.0 MCH 30.3 MCHC 33.6 RDW 13.6 Plt Count 249 MPV 7.9 Absolute Neuts (auto) 4.3 Neutrophils % 56.7 Lymphocytes % 34.6 Monocytes % 6.5 Eosinophils % 1.2 Basophils % 1.0 Nucleated RBC % 0 PT with INR 12.40 INR 1.05 PTT (Actin FS) Sodium 140 Potassium 4.6 Chloride 107 Carbon Dioxide 22 Anion Gap 10 BUN 17.4 Creatinine 0.8 Est GFR (CKD-EPI)AfAm 81.27 Est GFR (CKD-EPI)NonAf 70.12 Random Glucose 228 H Calcium 9.2 Total Bilirubin 0.8 AST 20 ALT 27 Alkaline Phosphatase 119 H Creatine Kinase 109 Troponin I 0.02 Total Protein 6.9 Albumin 3.7 TSH 2.16 Free T4 1.36 03/15/20 12:53 WBC RBC Hgb Hct MCV MCH MCHC RDW Plt Count MPV Absolute Neuts (auto) Neutrophils % Lymphocytes % Monocytes % Eosinophils % Basophils % Nucleated RBC % PT with INR INR PTT (Actin FS) 42.0 H Sodium Potassium Chloride Carbon Dioxide Anion Gap BUN Creatinine Est GFR (CKD-EPI)AfAm Est GFR (CKD-EPI)NonAf Random Glucose Calcium Total Bilirubin AST ALT Alkaline Phosphatase Creatine Kinase Troponin I Total Protein Albumin TSH Free T4 ASSESSMENT/PLAN: Family Medical History Family History: As Documented Family Hx Cardiac Disorders: Sister (stroke), Brother (OK) Visit type - Medication Review Med list reviewed for High Risk Meds patients 65 and older: Yes - Emergency Visit Emergency Visit: Yes ED Registration Date: 03/15/20 Care time: The patient presented to the Emergency Department on the above date and was hospitalized for further evaluation of their emergent condition. - New Patient This patient is new to me today: Yes Date on this admission: 03/15/20 - Critical Care Critical Care patient: No ATTENDING PHYSICIAN STATEMENT I saw and evaluated the patient. I reviewed the resident's note and discussed the case with the resident. I agree with the resident's findings and plan as documented. SUBJECTIVE: OBJECTIVE: ASSESSMENT AND PLAN: <Marita Spivey - Last Filed: 03/15/20 18:56> CHIEF COMPLAINT: PCP: HISTORY OF PRESENT ILLNESS: ER course was notable for: (1) (2) (3) Recent Travel: PAST MEDICAL HISTORY: PAST SURGICAL HISTORY: Social History: Smoking: Alcohol: Drugs: Allergies No Known Allergies Allergy (Verified 03/15/20 12:54) HOME MEDICATIONS: Home Medications Medication Instructions Recorded Atorvastatin Calcium [Lipitor] 10 mg PO HS 08/20/18 Escitalopram Oxalate [Lexapro -] 10 mg PO DAILY 08/20/18 Glipizide [Glucotrol Xl] 2.5 mg PO DAILY 08/20/18 Levothyroxine [Synthroid -] 50 mcg PO DAILY 08/20/18 Metoprolol Succinate 25 mg PO DAILY 03/15/20 REVIEW OF SYSTEMS CONSTITUTIONAL: Absent: fever, chills, diaphoresis, generalized weakness, malaise, loss of appetite, weight change HEENT: Absent: rhinorrhea, nasal congestion, throat pain, throat swelling, difficulty swallowing, mouth swelling, ear pain, eye pain, visual changes CARDIOVASCULAR: Absent: chest pain, syncope, palpitations, irregular heart rate, lightheadedness, peripheral edema RESPIRATORY: Absent: cough, shortness of breath, dyspnea with exertion, orthopnea, wheezing, stridor, hemoptysis GASTROINTESTINAL: Absent: abdominal pain, abdominal distension, nausea, vomiting, diarrhea, constipation, melena, hematochezia GENITOURINARY: Absent: dysuria, frequency, urgency, hesitancy, hematuria, flank pain, genital pain MUSCULOSKELETAL: Absent: myalgia, arthralgia, joint swelling, back pain, neck pain SKIN: Absent: rash, itching, pallor HEMATOLOGIC/IMMUNOLOGIC: Absent: easy bleeding, easy bruising, lymphadenopathy, frequent infections ENDOCRINE: Absent: unexplained weight gain, unexplained weight loss, heat intolerance, cold intolerance NEUROLOGIC: Absent: headache, focal weakness or paresthesias, dizziness, unsteady gait, seizure, mental status changes, bladder or bowel incontinence PSYCHIATRIC: Absent: anxiety, depression, suicidal or homicidal ideation, hallucinations. PHYSICAL EXAMINATION Vital Signs - 24 hr 03/15/20 03/15/20 03/15/20 12:00 13:19 13:59 Temperature 98.0 F 98.1 F Pulse Rate 120 H Pulse Rate [ 84 Apical] Respiratory 18 19 Rate Blood Pressure 133/91 133/91 Blood Pressure 101/64 [Left Arm] O2 Sat by Pulse 100 97 Oximetry (%) GENERAL: Awake, alert, and fully oriented, in no acute distress. HEAD: Normal with no signs of trauma. EYES: Pupils equal, round and reactive to light, extraocular movements intact, sclera anicteric, conjunctiva clear. No lid lag. EARS, NOSE, THROAT: Ears normal, nares patent, oropharynx clear without exudates. Moist mucous membranes. NECK: Normal range of motion, supple without lymphadenopathy, JVD, or masses. LUNGS: Breath sounds equal, clear to auscultation bilaterally. No wheezes, and no crackles. No accessory muscle use. HEART: Regular rate and rhythm, normal S1 and S2 without murmur, rub or gallop. ABDOMEN: Soft, nontender, not distended, normoactive bowel sounds, no guarding, no rebound, no masses. No hepatomegaly or splenomegaly. MUSCULOSKELETAL: Normal range of motion at all joints. No bony deformities or tenderness. No CVA tenderness. UPPER EXTREMITIES: 2+ pulses, warm, well-perfused. No cyanosis. No clubbing. No peripheral edema. LOWER EXTREMITIES: 2+ pulses, warm, well-perfused. No calf tenderness. No peripheral edema. NEUROLOGICAL: Cranial nerves II-XII intact. Normal speech. Normal gait. PSYCHIATRIC: Cooperative. Good eye contact. Appropriate mood and affect. SKIN: Warm, dry, normal turgor, no rashes or lesions noted, normal capillary refill. Laboratory Results - last 24 hr 03/15/20 03/15/20 03/15/20 12:53 12:53 12:53 WBC 7.7 RBC 4.94 Hgb 15.0 Hct 44.5 MCV 90.0 MCH 30.3 MCHC 33.6 RDW 13.6 Plt Count 249 MPV 7.9 Absolute Neuts (auto) 4.3 Neutrophils % 56.7 Lymphocytes % 34.6 Monocytes % 6.5 Eosinophils % 1.2 Basophils % 1.0 Nucleated RBC % 0 PT with INR 12.40 INR 1.05 PTT (Actin FS) Sodium 140 Potassium 4.6 Chloride 107 Carbon Dioxide 22 Anion Gap 10 BUN 17.4 Creatinine 0.8 Est GFR (CKD-EPI)AfAm 81.27 Est GFR (CKD-EPI)NonAf 70.12 Random Glucose 228 H Calcium 9.2 Total Bilirubin 0.8 AST 20 ALT 27 Alkaline Phosphatase 119 H Creatine Kinase 109 Troponin I 0.02 Total Protein 6.9 Albumin 3.7 TSH 2.16 Free T4 1.36 03/15/20 03/15/20 12:53 17:00 WBC RBC Hgb Hct MCV MCH MCHC RDW Plt Count MPV Absolute Neuts (auto) Neutrophils % Lymphocytes % Monocytes % Eosinophils % Basophils % Nucleated RBC % PT with INR INR PTT (Actin FS) 42.0 H Sodium Potassium Chloride Carbon Dioxide Anion Gap BUN Creatinine Est GFR (CKD-EPI)AfAm Est GFR (CKD-EPI)NonAf Random Glucose Calcium Total Bilirubin AST ALT Alkaline Phosphatase Creatine Kinase Troponin I 0.02 Total Protein Albumin TSH Free T4 ASSESSMENT/PLAN: ATTENDING PHYSICIAN STATEMENT I saw and evaluated the patient. I reviewed the resident's note and discussed the case with the resident. I agree with the resident's findings and plan as documented. SUBJECTIVE: OBJECTIVE: Patient was seen and examined. ASSESSMENT AND PLAN: 79 female with a PMHx notable for HTN, HLD, & NIDDM, she presents with CP/new onset Afib - s/p IV/PO metoprolol in ED with improved HR - Resume home metoprolol - Trend cardiac enzymes, 2D ECHO - Cardiology consult in AM
[2020-03-15 19:27] LABS: ALBUMIN 3.7 g/dl (3.4-5.0); BILIRUBIN,TOTAL 0.8 mg/dL (0.2-1); BLOOD UREA NITROGEN 17.9 mg/dL (7-18); CALCIUM 9.2 mg/dL (8.5-10.1); CREATININE 0.8 mg/dL (0.55-1.3); POTASSIUM 4.5 mmol/L (3.5-5.1); TOT PROT 6.8 g/dl (6.4-8.2)
[2020-03-15] MEDS ORDERED: ATORVASTATIN CA 10 MG TABLET (FP) ONE (22:17)
[2020-03-15] MEDS: ATORVASTATIN CA 10 MG TABLET (FP) PO SCH (22:34)
[2020-03-15] MEDS: INSULIN SLIDING SCALE (NOVOLOG) 1 VIAL SQ SCH (23:03)
[2020-03-16 07:10] LABS: BASO % 0.6 % (0-2.0); EOS % 1.8 % (0-4.5); HEMATOCRIT 44.6 % (32.4-45.2); HEMOGLOBIN 14.9 GM/dL (10.7-15.3); MCH 30.2 pg (25.7-33.7); MCHC 33.5 g/dl (32.0-36.0); MEAN CELL VOLUME 90.2 fl (80-96); MEAN PLT VOLUME 8.3 fl (7.5-11.1); MONO % 7.6 % (3.8-10.2); PLATELET COUNT 225 K/MM3 (134-434); RBC 4.95 M/mm3 (3.60-5.2); RDW 13.4 % (11.6-15.6); WHITE BLOOD COUNT 8.3 K/mm3 (4.0-10.0)
[2020-03-16] MEDS ORDERED: LEVOTHYROXINE NA 25 MCG TABLET (FP) ONE (07:15)
[2020-03-16 07:26] LABS: BLOOD UREA NITROGEN 19.3 mg/dL (7-18); CALCIUM 9.2 mg/dL (8.5-10.1); CREATININE 0.8 mg/dL (0.55-1.3); MAGNESIUM 2.1 mg/dL (1.8-2.4); PHOSPHOROUS 3.5 mg/dL (2.5-4.9); POTASSIUM 4.2 mmol/L (3.5-5.1)
[2020-03-16] MEDS: INSULIN SLIDING SCALE (NOVOLOG) 1 VIAL SQ SCH ×4 (07:27→21:31)
[2020-03-16] MEDS: LEVOTHYROXINE NA 50 MCG TABLET (FP) PO SCH (07:27)
[2020-03-16] MEDS ORDERED: ENOXAPARIN NA (PORCINE) 60 MG/0.6 ML DISP.SYRIN SQ ONE (07:58)
[2020-03-16] MEDS ORDERED: metoPROLOL SUCCINATE 25 MG TAB.SR.24H (FP) ONE ×2 (07:58→10:38)
[2020-03-16] MEDS ORDERED: ESCITALOPRAM OXALATE 10 MG TABLET ONE (07:58)
[2020-03-16] MEDS: metoPROLOL SUCCINATE 25 MG TAB.SR.24H (FP) PO SCH ×2 (08:00→09:24)
--- NOTE | 2020-03-16 09:09 | EKG ---
Test Reason : Blood Pressure : / mmHG Vent. Rate : 120 BPM Atrial Rate : 117 BPM P-R Int : 000 ms QRS Dur : 076 ms QT Int : 320 ms P-R-T Axes : 000 011 -35 degrees QTc Int : 452 ms ATRIAL FIBRILLATION WITH RAPID VENTRICULAR RESPONSE NONSPECIFIC ST ABNORMALITY ABNORMAL ECG NO PREVIOUS ECGS AVAILABLE Confirmed by Yovany Cloud MD ([id number]) on 03/16/2020 9:08:45 AM Referred By: Confirmed By:Yovany Cloud MD
[2020-03-16] MEDS: ESCITALOPRAM OXALATE 10 MG TABLET PO SCH (09:23)
--- NOTE | 2020-03-16 09:58 | CON.CARD ---
Consult Consult Specialty:: Cardiology Referred by:: Hospitalist Reason for Consultation:: Cardiac evaluation - History of Present Illness Chief Complaint: AF with RVR History of Present Illness: Patient is a 79 year old female with underlying history of HTN, hypercholestelemia, NIDDM and hypothyroidism who presented yesterday to [facility] with chest heaviness and palpitations. She was found to have AF with RVR and was recommended for hospital admission. ER note states that patient had seen a history department chair previously and had cardiac catheterization at [facility] 8 years ago after an abnormal stress testing. Cath was presumably negative. She also has shortness of breath on exertion. Denies fever or chills. She denies PND or orthopnea. She denies nausea, vomiting, diarrhea or abdominal pain. She denies headache or lightheadedness. She complains of left shoulder pain intermittently. - History Source History Provided By: Patient, Medical Record Limitations to Obtaining History: No Limitations - Past Medical History Cardio/Vascular: Yes: HTN, Hyperlipdemia ...LMP: 03/15/20 ...: No Psych: Yes: Depression Musculoskeletal: Yes: Osteoarthritis Endocrine: Yes: Diabetes Mellitus, Hypothyroidism - Past Surgical History Additional Surgical History: Lumbar spine surgery. Right knee surgery - Alcohol/Substance Use Hx Alcohol Use: No History of Substance Use: reports: None - Smoking History Smoking history: Never smoked Home Medications - Allergies Allergies/Adverse Reactions: Allergies Allergy/AdvReac Type Severity Reaction Status Date / Time No Known Allergies Allergy Verified 03/15/20 12:54 - Home Medications Home Medications: Ambulatory Orders Atorvastatin Calcium [Lipitor] 10 mg PO HS 08/20/18 Escitalopram Oxalate [Lexapro -] 10 mg PO DAILY 08/20/18 Glipizide [Glucotrol Xl] 2.5 mg PO DAILY 08/20/18 Levothyroxine [Synthroid -] 50 mcg PO DAILY 08/20/18 Metoprolol Succinate 25 mg PO DAILY 03/15/20 Gabapentin 300 mg PO HS 03/16/20 Metformin HCl [Glucophage] 500 mg PO HS 03/16/20 Family Medical History Family Hx Cardiac Disorders: Sister (stroke), Brother ([place]) Review of Systems - Review of Systems Constitutional: denies: Chills, Fever, Weakness Cardiovascular: reports: Chest Pain, Palpitations, Shortness of Breath Respiratory: reports: SOB, SOB on Exertion. denies: Cough, Hemoptysis, Orthopnea, PND, Wheezing Gastrointestinal: denies: Abdominal Pain, Constipation, Diarrhea, Melena, Nausea, Rectal Bleeding, Vomiting Genitourinary: denies: Dysuria, Hematuria Musculoskeletal: reports: Joint Pain. denies: Back Pain Vital Signs: Vital Signs Temperature 98.1 F 03/16/20 05:45 Pulse Rate 130 H 03/16/20 07:30 Respiratory Rate 14 03/16/20 07:30 Blood Pressure 101/59 L 03/16/20 07:30 O2 Sat by Pulse Oximetry (%) 96 03/16/20 07:30 Eyes: Yes: PERRL HENT: Yes: Atraumatic Neck: Yes: Supple Respiratory: Yes: CTA Bilaterally Gastrointestinal: Yes: Normal Bowel Sounds, Soft. No: Tenderness Cardiovascular: Yes: Tachycardia, Pulse Irregular JVD: No PMI: Non-Displaced Heart Sounds: Yes: S1, S2 Edema: No - Other Data Labs, Other Data: CBC, BMP 03/16/20 06:12 03/16/20 06:12 INR, PTT INR 1.05 (0.83-1.09) 03/15/20 12:53 Troponin, BNP 03/15/20 03/15/20 03/16/20 12:53 17:00 06:12 Troponin I 0.02 0.02 0.05 Laboratory Results - last 24 hr 03/15/20 03/15/20 03/15/20 12:53 12:53 12:53 WBC 7.7 RBC 4.94 Hgb 15.0 Hct 44.5 MCV 90.0 MCH 30.3 MCHC 33.6 RDW 13.6 Plt Count 249 MPV 7.9 Absolute Neuts (auto) 4.3 Neutrophils % 56.7 Lymphocytes % 34.6 Monocytes % 6.5 Eosinophils % 1.2 Basophils % 1.0 Nucleated RBC % 0 PT with INR 12.40 INR 1.05 PTT (Actin FS) Sodium 140 Potassium 4.6 Chloride 107 Carbon Dioxide 22 Anion Gap 10 BUN 17.4 Creatinine 0.8 Est GFR (CKD-EPI)AfAm 81.27 Est GFR (CKD-EPI)NonAf 70.12 POC Glucometer Random Glucose 228 H Hemoglobin A1c % Calcium 9.2 Phosphorus Magnesium Total Bilirubin 0.8 AST 20 ALT 27 Alkaline Phosphatase 119 H Creatine Kinase 109 Troponin I 0.02 Total Protein 6.9 Albumin 3.7 Triglycerides Cholesterol Total LDL Cholesterol HDL Cholesterol TSH 2.16 Free T4 1.36 03/15/20 03/15/20 03/15/20 12:53 17:00 22:34 WBC RBC Hgb Hct MCV MCH MCHC RDW Plt Count MPV Absolute Neuts (auto) Neutrophils % Lymphocytes % Monocytes % Eosinophils % Basophils % Nucleated RBC % PT with INR INR PTT (Actin FS) 42.0 H Sodium 139 Potassium 4.5 Chloride 108 H Carbon Dioxide 20 L Anion Gap 12 BUN 17.9 Creatinine 0.8 Est GFR (CKD-EPI)AfAm 81.27 Est GFR (CKD-EPI)NonAf 70.12 POC Glucometer 333 Random Glucose 189 H Hemoglobin A1c % Calcium 9.2 Phosphorus Magnesium Total Bilirubin 0.8 AST 18 ALT 24 Alkaline Phosphatase 120 H Creatine Kinase Troponin I 0.02 Total Protein 6.8 Albumin 3.7 Triglycerides Cholesterol Total LDL Cholesterol HDL Cholesterol TSH Free T4 03/16/20 03/16/20 03/16/20 06:12 06:12 06:12 WBC 8.3 RBC 4.95 Hgb 14.9 Hct 44.6 MCV 90.2 MCH 30.2 MCHC 33.5 RDW 13.4 Plt Count 225 MPV 8.3 Absolute Neuts (auto) 4.5 Neutrophils % 54.0 Lymphocytes % 36.0 Monocytes % 7.6 Eosinophils % 1.8 Basophils % 0.6 Nucleated RBC % 0 PT with INR INR PTT (Actin FS) Sodium 140 Potassium 4.2 Chloride 107 Carbon Dioxide 21 Anion Gap 12 BUN 19.3 H Creatinine 0.8 Est GFR (CKD-EPI)AfAm 81.27 Est GFR (CKD-EPI)NonAf 70.12 POC Glucometer Random Glucose 191 H Hemoglobin A1c % 9.5 H Calcium 9.2 Phosphorus 3.5 Magnesium 2.1 Total Bilirubin AST ALT Alkaline Phosphatase Creatine Kinase Troponin I 0.05 Total Protein Albumin Triglycerides 152 H Cholesterol 163 Total LDL Cholesterol 104 H HDL Cholesterol 39 L TSH Free T4 Atrial fibrillation with RVR Echo: Pending Imaging - Results Chest X-ray: Report Reviewed (No acute chest pathology) EKG: Report Reviewed Problem List - Problems (1) Atrial fibrillation with RVR Code(s): I48.91 - UNSPECIFIED ATRIAL FIBRILLATION (2) HTN (hypertension) Code(s): I10 - ESSENTIAL (PRIMARY) HYPERTENSION Qualifiers: Hypertension type: essential hypertension Qualified Code(s): I10 - Essential (primary) hypertension (3) Hypercholesterolemia Code(s): E78.00 - PURE HYPERCHOLESTEROLEMIA, UNSPECIFIED (4) Non-insulin dependent diabetes mellitus Code(s): FVT3886 - (5) Hypothyroidism Code(s): E03.9 - HYPOTHYROIDISM, UNSPECIFIED Assessment/Plan 1. New onset AF with RVR [id number] score of 5 2. HTN 3. Hypercholesterolemia 4. NIDDM 5. Hypothyroidism PLAN: 1. In view of elevated risk score, start anticoagulation. Eliquis 5 mg BID to be started 2. Use of Sotalol 80 mg BID may be considered. Will need to admit for daily ECG to check QTc. 3. Cardizem may be used for additional rate control. Add Cardizem 30 mg Q8 hr 4. Echocardiography to assess LV/RV and valvular function 5. If remains in AF, consider ERNESTINA guided synchronized cardioversion on prior to discharge. 6. Further cardiac work up can be done as outpatient. Obtain prior record PMD: Sb Blue MD at [facility].
[2020-03-16] MEDS ORDERED: metoPROLOL SUCCINATE 25 MG TAB.SR.24H (FP) PO ONE (10:00)
[2020-03-16] MEDS ORDERED: ENOXAPARIN NA (PORCINE) 40 MG/0.4 ML DISP.SYRIN SQ SCH (10:00)
[2020-03-16] MEDS ORDERED: ENOXAPARIN NA (PORCINE) 100 MG/1 ML DISP.SYRIN SQ SCH (10:00)
[2020-03-16] MEDS ORDERED: metoPROLOL SUCCINATE 25 MG TAB.SR.24H (FP) PO SCH (10:00)
[2020-03-16] MEDS ORDERED: APIXABAN 5 MG TABLET ONE (10:38)
[2020-03-16] MEDS: APIXABAN 5 MG TABLET PO SCH ×2 (10:45→21:09)
[2020-03-16] MEDS ORDERED: INSULIN (NOVOLOG) ASPART 100 UNITS/ML 10ML VIAL ONE ×2 (11:31→17:01)
[2020-03-16] MEDS: SOTALOL HCL 80 MG TABLET (FP) PO SCH ×2 (11:32→21:11)
--- NOTE | 2020-03-16 11:32 | ECHO ---
Version: 1 Name: MARTINA PATE Exam: Adult Echocardiogram Study Date: 03/16/2020, 9:54 AM Age: 79 Years MMode/2D Measurements & Calculations IVSd: 1.39 cm LVIDs: 2.17 cm LVIDd: 3.0 cm LVPWd: 1.38 cm LAV (MOD-bp): 55.0 ml LVOT diam: 1.79 cm Ao root diam: 2.18 cm LA dimension: 3.2 cm Doppler Measurements & Calculations MV E max bob: 75.0 cm/sec Ao max P.6 mmHg Ao V2 max: 126.5 cm/sec TR max bob: 195.5 cm/sec TR max P.3 mmHg Procedure A complete two-dimensional transthoracic echocardiogram was performed (2D, M-mode, Doppler and color flow Doppler). The patient was in atrial fibrillation with rapid ventricular response during the exam wit h a heart rate exceeding 100 bpm. Left Ventricle The left ventricle is normal in size. There is moderate concentric left ventricular hypertrophy. Lef t ventricular systolic function is normal. Ejection Fraction = 55%. The transmitral spectral Doppler f low pattern is suggestive of impaired LV relaxation. Atria Normal left and right atrial size and function. Mitral Valve There is mild mitral valve thickening. There is trace to mild mitral regurgitation. Tricuspid Valve The tricuspid valve is normal in structure and function. There is trace tricuspid regurgitation. Rig ht ventricular systolic pressure is 20 mmhg. Aortic Valve The aortic valve is normal in structure and function. Pulmonic Valve The pulmonic valve is normal in structure and function. Great Vessels The aortic root is normal size. Pericardium/Pleura There is no pericardial effusion. There is no pleural effusion. Summary Statements The patient was in atrial fibrillation with rapid ventricular response during the exam with a heart rate exceeding 100 bpm. The left ventricle is normal in size. There is moderate concentric left ventricular hypertrophy. Left ventricular systolic function is normal. Ejection Fraction = 55%. There is mild mitral valve thickening. There is trace to mild mitral regurgitation. There is trace tricuspid regurgitation. MD Yovany Cloud 03/16/2020, 11:31 AM Ordering Physician: Guillermo Garnica Referring Physician: GUILLERMO GARNICA Performed By: Nae Fairchild
[2020-03-16] MEDS: dilTIAZem HCL 30 MG TABLET PO SCH ×2 (13:35→21:13)
--- NOTE | 2020-03-16 14:24 | PN ---
Physical Exam: SUBJECTIVE: Patient seen and examined in ED. Paged by nurse this AM before seeing patient because she was tachycardic to 130s. Patient was given metoprolol tartrate 5 mg IV push. On exam, patient HR was still elevated but < 120. Patient reports mild palpitations at present. She described her chest pain prior to coming to the hospital as pressure like something heavy sitting on her chest. She denies current chest pain. She also says she's experiencing increase SOB with walking and stairs. Patient going for Echo today. Denies fever, n/v/d, dy suria, hematuria. OBJECTIVE: Vital Signs 03/16/20 03/16/20 07:30 10:45 Temperature Pulse Rate 130 H Pulse Rate [ 130 H 122 H Apical] Respiratory 14 23 H Rate Blood Pressure 101/59 L Blood Pressure 101/59 L [Left Arm] Blood Pressure 137/90 [Right Arm] O2 Sat by Pulse 96 98 Oximetry (%) 03/16/20 14:00 Temperature 98.2 F Pulse Rate 113 H Pulse Rate [ Apical] Respiratory 16 Rate Blood Pressure 104/54 L Blood Pressure [Left Arm] Blood Pressure [Right Arm] O2 Sat by Pulse 98 Oximetry (%) GENERAL: The patient is awake, alert, and fully oriented, in no acute distress. HEAD: Normal with no signs of trauma. EYES: PERRL, extraocular movements intact, sclera anicteric, conjunctiva clear. ENT: moist mucous membranes. NECK: no carotid bruits appreciated LUNGS: Breath sounds equal, clear to auscultation bilaterally HEART: irregular rhythm, tachy, S1, S2 ABDOMEN: Soft, nontender, nondistended, normoactive bowel sounds, no guarding EXTREMITIES: 2+ pulses, warm, well-perfused, no edema. NEUROLOGICAL: Normal speech PSYCH: Normal mood, normal affect. SKIN: Warm, dry, no rashes or lesions noted Laboratory Results - last 24 hr 03/15/20 03/15/20 03/15/20 12:53 17:00 22:34 WBC RBC Hgb Hct MCV MCH MCHC RDW Plt Count MPV Absolute Neuts (auto) Neutrophils % Lymphocytes % Monocytes % Eosinophils % Basophils % Nucleated RBC % Sodium 140 139 Potassium 4.6 4.5 Chloride 107 108 H Carbon Dioxide 22 20 L Anion Gap 10 12 BUN 17.4 17.9 Creatinine 0.8 0.8 Est GFR (CKD-EPI)AfAm 81.27 81.27 Est GFR (CKD-EPI)NonAf 70.12 70.12 POC Glucometer 333 Random Glucose 228 H 189 H Hemoglobin A1c % Calcium 9.2 9.2 Phosphorus Magnesium Total Bilirubin 0.8 0.8 AST 20 18 ALT 27 24 Alkaline Phosphatase 119 H 120 H Creatine Kinase 109 Troponin I 0.02 0.02 Total Protein 6.9 6.8 Albumin 3.7 3.7 Triglycerides Cholesterol Total LDL Cholesterol HDL Cholesterol TSH 2.16 Free T4 1.36 03/16/20 03/16/20 03/16/20 06:12 06:12 06:12 WBC 8.3 RBC 4.95 Hgb 14.9 Hct 44.6 MCV 90.2 MCH 30.2 MCHC 33.5 RDW 13.4 Plt Count 225 MPV 8.3 Absolute Neuts (auto) 4.5 Neutrophils % 54.0 Lymphocytes % 36.0 Monocytes % 7.6 Eosinophils % 1.8 Basophils % 0.6 Nucleated RBC % 0 Sodium 140 Potassium 4.2 Chloride 107 Carbon Dioxide 21 Anion Gap 12 BUN 19.3 H Creatinine 0.8 Est GFR (CKD-EPI)AfAm 81.27 Est GFR (CKD-EPI)NonAf 70.12 POC Glucometer Random Glucose 191 H Hemoglobin A1c % 9.5 H Calcium 9.2 Phosphorus 3.5 Magnesium 2.1 Total Bilirubin AST ALT Alkaline Phosphatase Creatine Kinase Troponin I 0.05 Total Protein Albumin Triglycerides 152 H Cholesterol 163 Total LDL Cholesterol 104 H HDL Cholesterol 39 L TSH Free T4 03/16/20 03/16/20 07:08 11:10 WBC RBC Hgb Hct MCV MCH MCHC RDW Plt Count MPV Absolute Neuts (auto) Neutrophils % Lymphocytes % Monocytes % Eosinophils % Basophils % Nucleated RBC % Sodium Potassium Chloride Carbon Dioxide Anion Gap BUN Creatinine Est GFR (CKD-EPI)AfAm Est GFR (CKD-EPI)NonAf POC Glucometer 217 259 Random Glucose Hemoglobin A1c % Calcium Phosphorus Magnesium Total Bilirubin AST ALT Alkaline Phosphatase Creatine Kinase Troponin I Total Protein Albumin Triglycerides Cholesterol Total LDL Cholesterol HDL Cholesterol TSH Free T4 Active Medications Generic Name Dose Route Start Last Admin Trade Name Freq PRN Reason Stop Dose Admin Apixaban 5 mg 03/16/20 10:30 03/16/20 10:45 Eliquis - PO 5 mg BID [place] Administration Atorvastatin Calcium 10 mg 03/15/20 22:00 03/15/20 22:34 Lipitor - PO 10 mg HS [place] Administration Diltiazem HCl 30 mg 03/16/20 14:00 03/16/20 13:35 Cardizem - PO 30 mg TID [place] Administration Escitalopram Oxalate 10 mg 03/16/20 10:00 03/16/20 09:23 Lexapro - PO 10 mg DAILY [place] Administration Insulin Aspart 1 vial 03/15/20 22:00 03/16/20 11:33 Novolog Vial Sliding Scale - SQ 6 units ACHS [place] Administration Protocol Levothyroxine Sodium 50 mcg 03/16/20 07:00 03/16/20 07:27 Synthroid - PO 50 mcg DAILY@0700 [place] Administration Sotalol HCl 80 mg 03/16/20 10:30 03/16/20 11:32 Betapace - PO 80 mg BID [place] Administration ASSESSMENT/PLAN: 79F w/ pmh of HTN, HLD, NIDDM referred to [facility] from [facility] for concern of Afib w/ RVR. Went to [facility] due to chest heaviness, like a "stone was on my chest" with palpitations. Physical exam notable for irregular rhythm. Admitted to [facility] for new-onset AFib. New-onset Afib w/RVR --unknown etiology - CHADVASC 5 - troponin neg x2 - TSH 2.16 - Cardio consulted: Dr. Jody Stokesquis 5 mg BID Use of Sotalol 80 mg BID - chemical conversion Cardizem 30 mg Q8 hr Echocardiography: no valvular disease, EF 55%, moderate LVH If remains in AFib, consider ERNESTINA guided synchronized cardioversion Lipids: total 104, HDL 39 Chronic HTN - toporol 25 at home/ cardiology changed - cardizem, sotalol, Chronic HLD - continue liptior NIDDM - HbA1c 9.5 - ISS - hold metformin - continue glipizide tomorrow Depression/PACHECO - continue lexapro FEN - sodium-diabetic diet - replenish electrolytes PRN DVT PPX -lovenox d/c - start eliquis 5 mg BID tonight Visit type - Emergency Visit Emergency Visit: Yes ED Registration Date: 03/15/20 Care time: The patient presented to the Emergency Department on the above date and was hospitalized for further evaluation of their emergent condition. - New Patient This patient is new to me today: Yes Date on this admission: 03/15/20 - Critical Care Critical Care patient: No - Discharge Referral Referred to [facility] Med P.C[facility] No - Medication Review Med list reviewed for High Risk Meds patients 65 and older: Yes ATTENDING PHYSICIAN STATEMENT I saw and evaluated the patient. I reviewed the resident's note and discussed the case with the resident. I agree with the resident's findings and plan as documented. SUBJECTIVE: OBJECTIVE: ASSESSMENT AND PLAN:
--- NOTE | 2020-03-16 17:52 | PN ---
Teaching Attending Note Name of Resident: Sunday Abdul ATTENDING PHYSICIAN STATEMENT I saw and evaluated the patient. I reviewed the resident's note and discussed the case with the resident. I agree with the resident's findings and plan as documented. SUBJECTIVE: seen around noon No fever or chills. No pain , no palpitations . she felt better reports running out of glipizide at home OBJECTIVE: NAD, awake alert. CV: deep heart sounds but sounds regular Lungs: CTAB Abd: soft , NT, Nd , NL BS Ext : No edema or erythema plan : 79 y/o lady with h/o HTN, HLP, NIDDM who presented after referral from urgent care fro new onset A fib 1- New onset A fib: NL TSH, NO MS on Echo , no signs of infection . - was not controlled on toprol. gave extra dose in am - appreciate card help: Sotalol and cardizem - EKG in am and daily - CHADSVASC of 5 . eliquis is covered by her insurance - I d/w her he risk of bleeding with AC including spinal bleed risk with eliquis. she understands and accepts risk of bleeding over the very high risk of stroke. - possible DC CV if no response to sotalol 2- H/o DM: - resume glipizied . -cont SSI -required 22 units today 3- h/o hypothyroidism: cont synthroid HLOC
[2020-03-16] MEDS: ATORVASTATIN CA 10 MG TABLET (FP) PO SCH (21:09)
[2020-03-17] MEDS ORDERED: PT OWN MED DRAWER 7, Y5N ONE (04:47)
[2020-03-17] MEDS: dilTIAZem HCL 30 MG TABLET PO SCH (05:40)
[2020-03-17] MEDS: glipiZIDE-XL 2.5 MG TAB.ER.24 PO SCH (06:09)
[2020-03-17] MEDS: INSULIN SLIDING SCALE (NOVOLOG) 1 VIAL SQ SCH ×4 (06:09→22:19)
[2020-03-17] MEDS: LEVOTHYROXINE NA 50 MCG TABLET (FP) PO SCH (06:09)
[2020-03-17 07:47] LABS: HEMATOCRIT 39.5 % (32.4-45.2); HEMOGLOBIN 13.4 GM/dL (10.7-15.3); MCH 30.3 pg (25.7-33.7); MCHC 33.8 g/dl (32.0-36.0); MEAN CELL VOLUME 89.5 fl (80-96); MEAN PLT VOLUME 8.1 fl (7.5-11.1); PLATELET COUNT 244 K/MM3 (134-434); RBC 4.42 M/mm3 (3.60-5.2); RDW 13.4 % (11.6-15.6); WHITE BLOOD COUNT 6.6 K/mm3 (4.0-10.0)
[2020-03-17 08:08] LABS: BLOOD UREA NITROGEN 20.2 mg/dL (7-18); CALCIUM 8.9 mg/dL (8.5-10.1); CREATININE 0.7 mg/dL (0.55-1.3); PHOSPHOROUS 3.6 mg/dL (2.5-4.9)
[2020-03-17] MEDS: APIXABAN 5 MG TABLET PO SCH ×2 (08:59→22:19)
[2020-03-17] MEDS: SOTALOL HCL 80 MG TABLET (FP) PO SCH ×3 (08:59→22:25)
[2020-03-17] MEDS: ESCITALOPRAM OXALATE 10 MG TABLET PO SCH (08:59)
--- NOTE | 2020-03-17 09:40 | PN ---
Progress Note, Physician History of Present Illness: Spontaneous conversion to sinus rhythm with rate-control on sotalol and resolution of chest heaviness, TANG and palpitations. - Current Medication List Current Medications: Active Medications Apixaban (Eliquis -) 5 mg PO BID [facility] Last Admin: 03/17/20 08:59 Dose: 5 mg Documented by: Atorvastatin Calcium (Lipitor -) 10 mg PO HS [facility] Last Admin: 03/16/20 21:09 Dose: 10 mg Documented by: Diltiazem HCl (Cardizem -) 30 mg PO TID [facility] Last Admin: 03/17/20 05:40 Dose: Not Given Documented by: Escitalopram Oxalate (Lexapro -) 10 mg PO DAILY [facility] Last Admin: 03/17/20 08:59 Dose: 10 mg Documented by: Glipizide (Glucotrol Xl -) 2.5 mg PO DAILY@0700 [facility] Last Admin: 03/17/20 06:09 Dose: 2.5 mg Documented by: Insulin Aspart (Novolog Vial Sliding Scale -) 1 vial SQ [facility]; Protocol Last Admin: 03/17/20 06:09 Dose: 2 units Documented by: Levothyroxine Sodium (Synthroid -) 50 mcg PO DAILY@0700 [facility] Last Admin: 03/17/20 06:09 Dose: 50 mcg Documented by: Sotalol HCl (Betapace -) 80 mg PO BID [facility] Last Admin: 03/17/20 08:59 Dose: 80 mg Documented by: - Objective Vital Signs: Vital Signs Temperature 97.8 F 03/17/20 07:57 Pulse Rate 49 L 03/17/20 07:57 Respiratory Rate 18 03/17/20 07:57 Blood Pressure 134/79 03/17/20 07:57 O2 Sat by Pulse Oximetry (%) 96 03/17/20 07:57 Constitutional: Yes: No Distress, Calm Neck: Yes: Supple Cardiovascular: Yes: Bradycardia Respiratory: Yes: Regular, CTA Bilaterally Gastrointestinal: Yes: Normal Bowel Sounds, Soft Edema: No Labs: CBC, BMP 03/17/20 06:30 03/17/20 06:30 INR, PTT INR 1.05 (0.83-1.09) 03/15/20 12:53 - ....Imaging EKG: Report Reviewed (SB @ 53 QTc 442 msec Tele: PAF->SR 03/16 14:30) Problem List - Problems (1) HTN (hypertension) Code(s): I10 - ESSENTIAL (PRIMARY) HYPERTENSION Qualifiers: Hypertension type: essential hypertension Qualified Code(s): I10 - Essential (primary) hypertension (2) Hypercholesterolemia Code(s): E78.00 - PURE HYPERCHOLESTEROLEMIA, UNSPECIFIED (3) Hypothyroidism Code(s): E03.9 - HYPOTHYROIDISM, UNSPECIFIED Qualifiers: Hypothyroidism type: unspecified Qualified Code(s): E03.9 - Hypothyroidism, unspecified (4) Paroxysmal atrial fibrillation with rapid ventricular response Code(s): I48.0 - PAROXYSMAL ATRIAL FIBRILLATION Assessment/Plan 03/16/2020 Echocardiography: Normal LV size with mod cLVH and normal LVEF 55%, tr-mild MR, tr TR 1. Paroxysmal AF with RVR -> sinus rhythm [id number] score of 5 2. HTN 3. Hypercholesterolemia 4. NIDDM 5. Hypothyroidism PLAN: 1. In view of elevated risk score, continue anticoagulation with Eliquis 5 mg BID 2. Continue Sotalol 80 mg BID without prolongation of QTc. Lipitor 10 qd 3. D/c Cardizem 30 q8 for additional rate control. 4. May d/c home with f/u in office PMD: Sb Blue MD at [facility].
--- NOTE | 2020-03-17 12:50 | EKG ---
Test Reason : Blood Pressure : / mmHG Vent. Rate : 053 BPM Atrial Rate : 053 BPM P-R Int : 166 ms QRS Dur : 074 ms QT Int : 472 ms P-R-T Axes : 062 018 013 degrees QTc Int : 442 ms SINUS BRADYCARDIA NONSPECIFIC ST ABNORMALITY ABNORMAL ECG WHEN COMPARED WITH ECG OF 15-MAR-2020 12:37, SINUS RHYTHM HAS REPLACED ATRIAL FIBRILLATION VENT. RATE HAS DECREASED BY 67 BPM Confirmed by Yovany Cloud MD ([id number]) on 03/17/2020 12:49:56 PM Referred By: Jose C CASTELLON Confirmed By:Yovany Cloud MD
--- NOTE | 2020-03-17 14:44 | PN ---
Physical Exam: SUBJECTIVE: Patient seen and examined bedside. As per tele, had 1 episode of Afib with RVR around 11 pm. Otherwise patient has converted back to sinus. She has had bradycardia going into the 40s since early this morning. Patient denies feeling light headed, dizzy, more SOB than normal, denies chest pain. Reports minimal palpitations for a short time last evening. OBJECTIVE: Vital Signs 03/17/20 03/17/20 07:57 13:00 Temperature 97.8 F 97.8 F Pulse Rate 49 L 56 L Respiratory 18 18 Rate Blood Pressure 134/79 128/74 O2 Sat by Pulse 96 96 Oximetry (%) GENERAL: The patient is awake, alert, and fully oriented, in no acute distress. HEAD: Normal with no signs of trauma. EYES: PERRL, extraocular movements intact, sclera anicteric, conjunctiva clear. ENT: moist mucous membranes. LUNGS: Breath sounds equal, CTA BL HEART: regular rhythm, bradycardic, S1, S2 ABDOMEN: Soft, nontender, nondistended EXTREMITIES:warm, well-perfused, no edema. NEUROLOGICAL: Normal speech PSYCH: Normal mood, normal affect. SKIN: Warm, dry, no rashes or lesions noted Laboratory Results - last 24 hr 03/16/20 03/16/20 03/16/20 10:02 16:58 21:29 WBC RBC Hgb Hct MCV MCH MCHC RDW Plt Count MPV Sodium Potassium Chloride Carbon Dioxide Anion Gap BUN Creatinine Est GFR (CKD-EPI)AfAm Est GFR (CKD-EPI)NonAf POC Glucometer 236 189 Random Glucose Calcium Phosphorus Magnesium COVID-19 (WENDY) Not detected 03/17/20 03/17/20 03/17/20 05:34 06:30 06:30 WBC 6.6 RBC 4.42 Hgb 13.4 Hct 39.5 MCV 89.5 MCH 30.3 MCHC 33.8 RDW 13.4 Plt Count 244 MPV 8.1 Sodium 139 Potassium 4.0 Chloride 108 H Carbon Dioxide 21 Anion Gap 10 BUN 20.2 H Creatinine 0.7 Est GFR (CKD-EPI)AfAm 95.51 Est GFR (CKD-EPI)NonAf 82.41 POC Glucometer 191 Random Glucose 187 H Calcium 8.9 Phosphorus 3.6 Magnesium 2.0 COVID-19 (WENDY) 03/17/20 11:13 WBC RBC Hgb Hct MCV MCH MCHC RDW Plt Count MPV Sodium Potassium Chloride Carbon Dioxide Anion Gap BUN Creatinine Est GFR (CKD-EPI)AfAm Est GFR (CKD-EPI)NonAf POC Glucometer 155 Random Glucose Calcium Phosphorus Magnesium COVID-19 (WENDY) Active Medications Generic Name Dose Route Start Last Admin Trade Name Freq PRN Reason Stop Dose Admin Apixaban 5 mg 03/16/20 10:30 03/17/20 08:59 Eliquis - PO 5 mg BID [place] Administration Atorvastatin Calcium 10 mg 03/15/20 22:00 03/16/20 21:09 Lipitor - PO 10 mg HS [place] Administration Escitalopram Oxalate 10 mg 03/16/20 10:00 03/17/20 08:59 Lexapro - PO 10 mg DAILY [place] Administration Glipizide 2.5 mg 03/17/20 07:00 03/17/20 06:09 Glucotrol Xl - PO 2.5 mg DAILY@0700 [place] Administration Insulin Aspart 1 vial 03/15/20 22:00 03/17/20 11:23 Novolog Vial Sliding Scale - SQ 2 units ACHS [place] Administration Protocol Levothyroxine Sodium 50 mcg 03/16/20 07:00 03/17/20 06:09 Synthroid - PO 50 mcg DAILY@0700 [place] Administration Sotalol HCl 80 mg 03/16/20 10:30 03/17/20 08:59 Betapace - PO 80 mg BID [place] Administration ASSESSMENT/PLAN: 79F w/ pmh of HTN, HLD, NIDDM referred to [facility] from [facility] for concern of Afib w/ RVR. Went to [facility] due to chest heaviness, like a "stone was on my chest" with palpitations. Physical exam notable for irregular rhythm. Admitted to [facility] for new-onset AFib. New-onset Afib w/RVR >> unknown etiology - CHADVASC 5 - Cardio consulted: Dr. Jody Velazquez 5 mg BID Patent cardioverted to sinus but is now bradycardic d/c cardizem continue sotalol 80 BID if no prolonged OTc or torsades overnight then Cardio said cleared for d/c tomorrow - currently in sinus rhythm with asymptomatic bradycardia - continue to monitor on tele Chronic HTN - sotalol 80 BID to be continued outpatient Chronic HLD - continue Lipitor NIDDM - HbA1c 9.5 - ISS - glipizide 2.5 daily Depression/PACHECO - continue lexapro FEN - sodium-diabetic diet - replenish electrolytes PRN DVT PPX - eliquis 5 mg BID continue upon discharge DISPO: - possible d/c tomorrow Visit type - Emergency Visit Emergency Visit: Yes ED Registration Date: 03/15/20 Care time: The patient presented to the Emergency Department on the above date a nd was hospitalized for further evaluation of their emergent condition. - New Patient This patient is new to me today: No - Critical Care Critical Care patient: No - Discharge Referral Referred to [facility] Med P.C.: No - Medication Review Med list reviewed for High Risk Meds patients 65 and older: Yes ATTENDING PHYSICIAN STATEMENT I saw and evaluated the patient. I reviewed the resident's note and discussed the case with the resident. I agree with the resident's findings and plan as documented. SUBJECTIVE: OBJECTIVE: ASSESSMENT AND PLAN:
--- NOTE | 2020-03-17 19:11 | PN ---
Teaching Attending Note Name of Resident: Preeti Houston ATTENDING PHYSICIAN STATEMENT I saw and evaluated the patient. I reviewed the resident's note and discussed the case with the resident. I agree with the resident's findings and plan as documented. SUBJECTIVE: seen in am , no OSB , no GUTIERREZ , no palpitations OBJECTIVE: NAD, awake alert. CV: RRR Lungs: CTAB Ext : No edema or erythema plan : 79 y/o lady with h/o HTN, HLP, NIDDM who presented after referral from urgent care fro new onset A fib 1- New onset A fib: - converted to sinus rhythm - pop over night - d/w dr. Perry: dc Cardizem and cont sotalol . EKG reviewed , no QTC prom=longation - since sotalol was started yesterday, dc will not be today , possibly tomorrow - EKG in am - cont eliquis 2- H/o DM: - glipizied . - cont SSI - 3- h/o hypothyroidism: cont synthroid HLOC possible dc tomorrow d/w Vicky cai
[2020-03-17] MEDS: ATORVASTATIN CA 10 MG TABLET (FP) PO SCH (22:19)
[2020-03-18] MEDS ORDERED: PT OWN MED DRAWER 7, Y5N ONE (06:55)
[2020-03-18] MEDS: glipiZIDE-XL 2.5 MG TAB.ER.24 PO SCH (07:03)
[2020-03-18] MEDS: INSULIN SLIDING SCALE (NOVOLOG) 1 VIAL SQ SCH (07:03)
[2020-03-18] MEDS: LEVOTHYROXINE NA 50 MCG TABLET (FP) PO SCH (07:03)
--- NOTE | 2020-03-18 09:33 | PN ---
Progress Note, Physician History of Present Illness: Remains in sinus rhythm on sotalol with resolution of chest heaviness, TANG and palpitations. - Current Medication List Current Medications: Active Medications Apixaban (Eliquis -) 5 mg PO BID [facility] Last Admin: 03/17/20 22:19 Dose: 5 mg Documented by: Atorvastatin Calcium (Lipitor -) 10 mg PO HS [facility] Last Admin: 03/17/20 22:19 Dose: 10 mg Documented by: Escitalopram Oxalate (Lexapro -) 10 mg PO DAILY [facility] Last Admin: 03/17/20 08:59 Dose: 10 mg Documented by: Glipizide (Glucotrol Xl -) 2.5 mg PO DAILY@0700 [facility] Last Admin: 03/18/20 07:03 Dose: 2.5 mg Documented by: Insulin Aspart (Novolog Vial Sliding Scale -) 1 vial SQ [facility]; Protocol Last Admin: 03/18/20 07:03 Dose: 2 units Documented by: Levothyroxine Sodium (Synthroid -) 50 mcg PO DAILY@0700 [facility] Last Admin: 03/18/20 07:03 Dose: 50 mcg Documented by: Sotalol HCl (Betapace -) 80 mg PO BID [facility] Last Admin: 03/17/20 22:25 Dose: Not Given Documented by: - Objective Vital Signs: Vital Signs Temperature 97.9 F 03/18/20 02:00 Pulse Rate 50 L 03/18/20 06:00 Respiratory Rate 18 03/18/20 06:00 Blood Pressure 132/60 03/18/20 06:00 O2 Sat by Pulse Oximetry (%) 97 03/17/20 21:05 Constitutional: Yes: No Distress, Calm Neck: Yes: Supple Cardiovascular: Yes: Regular Rate and Rhythm, Bradycardia Respiratory: Yes: Regular, CTA Bilaterally Gastrointestinal: Yes: Normal Bowel Sounds, Soft Edema: No Labs: CBC, BMP 03/17/20 06:30 03/17/20 06:30 INR, PTT INR 1.05 (0.83-1.09) 03/15/20 12:53 - ....Imaging EKG: Report Reviewed (ECG: SB @ 55 QTc 428 msec Tele: NSR w/o recurrence in PAF) Problem List - Problems (1) HTN (hypertension) Code(s): I10 - ESSENTIAL (PRIMARY) HYPERTENSION Qualifiers: Hypertension type: essential hypertension Qualified Code(s): I10 - Essential (primary) hypertension (2) Hypercholesterolemia Code(s): E78.00 - PURE HYPERCHOLESTEROLEMIA, UNSPECIFIED (3) Hypothyroidism Code(s): E03.9 - HYPOTHYROIDISM, UNSPECIFIED Qualifiers: Hypothyroidism type: unspecified Qualified Code(s): E03.9 - Hypothyroidism, unspecified (4) Paroxysmal atrial fibrillation with rapid ventricular response Code(s): I48.0 - PAROXYSMAL ATRIAL FIBRILLATION Assessment/Plan 03/16/2020 Echocardiography: Normal LV size with mod cLVH and normal LVEF 55%, tr-mild MR, tr TR 1. Paroxysmal AF with RVR -> sinus rhythm [id number] score of 5 2. HTN 3. Hypercholesterolemia 4. NIDDM 5. Hypothyroidism PLAN: 1. In view of elevated risk score, continue anticoagulation with Eliquis 5 mg BID 2. Continue Sotalol 80 mg BID without prolongation of QTc. Lipitor 10 qd 3. D/ara Cardizem 30 q8 for additional rate control. 4. November d/c home with f/u in office PMD: Sb Blue MD at [facility].
[2020-03-18] MEDS: SOTALOL HCL 80 MG TABLET (FP) PO SCH (09:40)
[2020-03-18] MEDS: APIXABAN 5 MG TABLET PO SCH (09:40)
[2020-03-18] MEDS: ESCITALOPRAM OXALATE 10 MG TABLET PO SCH (09:41)
[2020-03-18 10:19] VITALS: BP 110/53; PULSE 55; TEMP 97.8
--- NOTE | 2020-03-18 11:49 | PN ---
Teaching Attending Note Name of Resident: Preeti Houston ATTENDING PHYSICIAN STATEMENT I saw and evaluated the patient. I reviewed the resident's note and discussed the case with the resident. I agree with the resident's findings and plan as documented. SUBJECTIVE: seen around 8:30. denies cp , palpitaitons, fever , chills, SOB or TANG. walked to bathroom with no problems OBJECTIVE: NAD, awake alert. CV: RRR Lungs: CTAB Ext : No edema or erythema . varicose veins on legs nad feet plan: 79 y/o lady with h/o HTN, HLP, NIDDM who presented after referral from urgent care fro new onset A fib 1- New onset A fib: - converted to sinus rhythm - EKG with sinus pop and QTC 429 - tele reviewed. no events over night -cont sotalol and Eliquis and f/u with card as out pt. - home meds were reviewed with her individually and was asked to stop her home toprol 2- H/o DM: - glipizied and metformin after dc 3- h/o hypothyroidism: cont synthroid dc home
--- NOTE | 2020-03-18 13:13 | DS ---
Physical Exam: SUBJECTIVE: Patient seen and examined bedside. No events overnight. Patient denies chest pain, palpitations, increased dizziness or SOB. Patient feels ready to go home. OBJECTIVE: Vital Signs Period Temp Pulse Resp BP Sys/Montes Pulse Ox Last 24 Hr 97.8 F-98.2 F 48-66 18-18 110-137/53-75 96-98 PHYSICAL EXAM GENERAL: The patient is awake, alert, and fully oriented, in no acute distress. HEAD: Normal with no signs of trauma. EYES: PERRL, extraocular movements intact, sclera anicteric, conjunctiva clear. ENT: moist mucous membranes. LUNGS: Breath sounds equal, CTA BL HEART: regular rhythm, bradycardic, S1, S2 ABDOMEN: Soft, nontender, nondistended EXTREMITIES:warm, well-perfused, no edema. NEUROLOGICAL: Normal speech PSYCH: Normal mood, normal affect. SKIN: Warm, dry, no rashes or lesions noted LABS Laboratory Results 03/15/20 03/15/20 03/15/20 12:53 12:53 12:53 WBC 7.7 RBC 4.94 Hgb 15.0 Hct 44.5 MCV 90.0 MCH 30.3 MCHC 33.6 RDW 13.6 Plt Count 249 MPV 7.9 Absolute Neuts (auto) 4.3 Neutrophils % 56.7 Lymphocytes % 34.6 Monocytes % 6.5 Eosinophils % 1.2 Basophils % 1.0 Nucleated RBC % 0 PT with INR 12.40 INR 1.05 PTT (Actin FS) Sodium 140 Potassium 4.6 Chloride 107 Carbon Dioxide 22 Anion Gap 10 BUN 17.4 Creatinine 0.8 Est GFR (CKD-EPI)AfAm 81.27 Est GFR (CKD-EPI)NonAf 70.12 POC Glucometer Random Glucose 228 H Hemoglobin A1c % Calcium 9.2 Phosphorus Magnesium Total Bilirubin 0.8 AST 20 ALT 27 Alkaline Phosphatase 119 H Creatine Kinase 109 Troponin I 0.02 Total Protein 6.9 Albumin 3.7 Triglycerides Cholesterol Total LDL Cholesterol HDL Cholesterol TSH 2.16 Free T4 1.36 COVID-19 (WENDY) 03/15/20 03/15/20 03/15/20 12:53 17:00 22:34 WBC RBC Hgb Hct MCV MCH MCHC RDW Plt Count MPV Absolute Neuts (auto) Neutrophils % Lymphocytes % Monocytes % Eosinophils % Basophils % Nucleated RBC % PT with INR INR PTT (Actin FS) 42.0 H Sodium 139 Potassium 4.5 Chloride 108 H Carbon Dioxide 20 L Anion Gap 12 BUN 17.9 Creatinine 0.8 Est GFR (CKD-EPI)AfAm 81.27 Est GFR (CKD-EPI)NonAf 70.12 POC Glucometer 333 Random Glucose 189 H Hemoglobin A1c % Calcium 9.2 Phosphorus Magnesium Total Bilirubin 0.8 AST 18 ALT 24 Alkaline Phosphatase 120 H Creatine Kinase Troponin I 0.02 Total Protein 6.8 Albumin 3.7 Triglycerides Cholesterol Total LDL Cholesterol HDL Cholesterol TSH Free T4 COVID-19 (WENDY) 03/16/20 03/16/20 03/16/20 06:12 06:12 06:12 WBC 8.3 RBC 4.95 Hgb 14.9 Hct 44.6 MCV 90.2 MCH 30.2 MCHC 33.5 RDW 13.4 Plt Count 225 MPV 8.3 Absolute Neuts (auto) 4.5 Neutrophils % 54.0 Lymphocytes % 36.0 Monocytes % 7.6 Eosinophils % 1.8 Basophils % 0.6 Nucleated RBC % 0 PT with INR INR PTT (Actin FS) Sodium 140 Potassium 4.2 Chloride 107 Carbon Dioxide 21 Anion Gap 12 BUN 19.3 H Creatinine 0.8 Est GFR (CKD-EPI)AfAm 81.27 Est GFR (CKD-EPI)NonAf 70.12 POC Glucometer Random Glucose 191 H Hemoglobin A1c % 9.5 H Calcium 9.2 Phosphorus 3.5 Magnesium 2.1 Total Bilirubin AST ALT Alkaline Phosphatase Creatine Kinase Troponin I 0.05 Total Protein Albumin Triglycerides 152 H Cholesterol 163 Total LDL Cholesterol 104 H HDL Cholesterol 39 L TSH Free T4 COVID-19 (WENDY) 03/16/20 03/16/20 03/16/20 07:08 10:02 11:10 WBC RBC Hgb Hct MCV MCH MCHC RDW Plt Count MPV Absolute Neuts (auto) Neutrophils % Lymphocytes % Monocytes % Eosinophils % Basophils % Nucleated RBC % PT with INR INR PTT (Actin FS) Sodium Potassium Chloride Carbon Dioxide Anion Gap BUN Creatinine Est GFR (CKD-EPI)AfAm Est GFR (CKD-EPI)NonAf POC Glucometer 217 259 Random Glucose Hemoglobin A1c % Calcium Phosphorus Magnesium Total Bilirubin AST ALT Alkaline Phosphatase Creatine Kinase Troponin I Total Protein Albumin Triglycerides Cholesterol Total LDL Cholesterol HDL Cholesterol TSH Free T4 COVID-19 (WENDY) Not detected 03/16/20 03/16/20 03/17/20 16:58 21:29 05:34 WBC RBC Hgb Hct MCV MCH MCHC RDW Plt Count MPV Absolute Neuts (auto) Neutrophils % Lymphocytes % Monocytes % Eosinophils % Basophils % Nucleated RBC % PT with INR INR PTT (Actin FS) Sodium Potassium Chloride Carbon Dioxide Anion Gap BUN Creatinine Est GFR (CKD-EPI)AfAm Est GFR (CKD-EPI)NonAf POC Glucometer 236 189 191 Random Glucose Hemoglobin A1c % Calcium Phosphorus Magnesium Total Bilirubin AST ALT Alkaline Phosphatase Creatine Kinase Troponin I Total Protein Albumin Triglycerides Cholesterol Total LDL Cholesterol HDL Cholesterol TSH Free T4 COVID- (WENDY) 03/17/20 03/17/20 03/17/20 06:30 06:30 11:13 WBC 6.6 RBC 4.42 Hgb 13.4 Hct 39.5 MCV 89.5 MCH 30.3 MCHC 33.8 RDW 13.4 Plt Count 244 MPV 8.1 Absolute Neuts (auto) Neutrophils % Lymphocytes % Monocytes % Eosinophils % Basophils % Nucleated RBC % PT with INR INR PTT (Actin FS) Sodium 139 Potassium 4.0 Chloride 108 H Carbon Dioxide 21 Anion Gap 10 BUN 20.2 H Creatinine 0.7 Est GFR (CKD-EPI)AfAm 95.51 Est GFR (CKD-EPI)NonAf 82.41 POC Glucometer 155 Random Glucose 187 H Hemoglobin A1c % Calcium 8.9 Phosphorus 3.6 Magnesium 2.0 Total Bilirubin AST ALT Alkaline Phosphatase Creatine Kinase Troponin I Total Protein Albumin Triglycerides Cholesterol Total LDL Cholesterol HDL Cholesterol TSH Free T4 COVID- (WENDY) 03/17/20 03/17/20 03/18/20 16:36 22:03 06:50 WBC RBC Hgb Hct MCV MCH MCHC RDW Plt Count MPV Absolute Neuts (auto) Neutrophils % Lymphocytes % Monocytes % Eosinophils % Basophils % Nucleated RBC % PT with INR INR PTT (Actin FS) Sodium Potassium Chloride Carbon Dioxide Anion Gap BUN Creatinine Est GFR (CKD-EPI)AfAm Est GFR (CKD-EPI)NonAf POC Glucometer 218 195 181 Random Glucose Hemoglobin A1c % Calcium Phosphorus Magnesium Total Bilirubin AST ALT Alkaline Phosphatase Creatine Kinase Troponin I Total Protein Albumin Triglycerides Cholesterol Total LDL Cholesterol HDL Cholesterol TSH Free T4 COVID- (WENDY) HOSPITAL COURSE: 79F with PMHx of HTN, HLD, & NIDDM referred to [facility] from [facility] for concern of Afib w/RVR. Went to [facility] due to increased chest pressure. Has had an abnormal stress then cardiac catheterization about 8ys ago at [facility] that was negative. Doesn't check her blood sugar regularly and didn't take her Gliperzide for 2mo in Jul-September due the COVID. Troponin were neg x2. Patient was seen by cardiology and an echo was performed. Echocardiography showed no valvular disease, EF 55%, & moderate LVH. She was started on Eliquis 5 mg BID. She was also given Sotalol 80 mg BID and Cardizem 30 mg Q8 hr for pharmacological cardioversion. The patient reverted back into sinus rhythm. However, she became bradycardic to the 40s. She was asymptomatic, though the cardizem was discontinued. The patient remained bradycardic and in sinus rhythm overnight without complaints. She was discharged home on Sotalol 80 BID & Eliquis 5 mg BID and should follow up with cardiology. While in the hospital the patient also had an A1c of 9.5. Patient was on SSI and her glipizide in the hospital. We encouraged her to have her A1c rechecked in 3 months after being on her medication consistently. Date of Admission:03/15/20 Date of Discharge: 03/18/20 Minutes to complete discharge: 37 Discharge Summary Problems reviewed: Yes Reason For Visit: SENSATION OF CHEST NPRESSURE,ATRIAL FIBRILLATION W Condition: Improved - Instructions Diet, Activity, Other Instructions: Visit: You came to the hospital because you were experiencing chest pressure and went to [facility]. At [facility], they did a ECG and were concerned about an irregular heart rhythm and referred you to the hospital. While in the hospital, you were found to have Atrial Fibrillation, which is just an irregular heart beat, but it was also beating very quickly. You were examined by cardiology and they did an Echocardiogram. The Echocardiogram showed that your new onset Atrial Fibrillation was not caused by any valvular disease. Cardiology put you on new medication that made you heart beat regularly. You heart maintained sinus rhythm over night. However, your new heart rate is very slow, what we call bradycardia. You heart rate is not causing your any problems at the moment, however, you should be cautious when getting up from laying down or bending over - please do these things slowly. You are now stable for discharge home. Medications: Please continue taking your home medication EXCEPT: PLEASE STOP TAKING METOPROLOL Please start taking Sotalol 80 mg by mouth twice a day (Once in the morning and once in the evening) Please start taking Eliquis 5mg by mouth twice a day (Once in the morning and once in the evening) Follow up: Please follow up with the Car Inspector Dr. Vera within 1 week of being discharged to monitor your heart and how you are doing on the new medication. Please follow up with your primary doctor within 2 weeks for continuity of care and to inform them of your medication changes. You will need to see your doctor for refills of your eliquis which you should continue for life. Also, your hemoglobin A1c, which we use to watch your diabetes, was 9.5 which is elevated. Please discuss your diabetes with your doctor and have your A1c checked again in 3 months. Other: If for any reason you are feeling short of breath, have chest pain, feel dizzy or lightheaded, please call your doctor or 911 and go to the nearest emergency room. Referrals: Sb Blue MD [Non Staff, Medical] - 2 Weeks Nehemias Vera MD [Staff Physician] - 1 Week Disposition: HOME - Home Medications Comprehensive Discharge Medication List: Ambulatory Orders Atorvastatin Calcium [Lipitor] 10 mg PO HS 08/20/18 Escitalopram Oxalate [Lexapro -] 10 mg PO DAILY 08/20/18 Glipizide [Glucotrol Xl] 2.5 mg PO DAILY 08/20/18 Levothyroxine [Synthroid -] 50 mcg PO DAILY 08/20/18 Metformin HCl [Glucophage] 500 mg PO HS 03/16/20 Apixaban [Eliquis -] 5 mg PO BID 30 Days #60 tablet 03/18/20 Sotalol HCl [Betapace -] 80 mg PO BID 30 Days #60 tablet 03/18/20 This patient is new to me today: No Emergency Visit: Yes ED Registration Date: 03/15/20 Care time: The patient presented to the Emergency Department on the above date and was hospitalized for further evaluation of their emergent condition. Critical Care patient: No - Discharge Referral Referred to [facility] Med P.C.: No ATTENDING PHYSICIAN STATEMENT I saw and evaluated the patient. I reviewed the resident's note and discussed the case with the resident. I agree with the resident's findings and plan as documented. SUBJECTIVE: OBJECTIVE: ASSESSMENT AND PLAN:
--- NOTE | 2020-03-18 14:58 | EKG ---
Test Reason : Blood Pressure : / mmHG Vent. Rate : 055 BPM Atrial Rate : 055 BPM P-R Int : 172 ms QRS Dur : 074 ms QT Int : 448 ms P-R-T Axes : 037 026 018 degrees QTc Int : 428 ms SINUS BRADYCARDIA OTHERWISE NORMAL ECG WHEN COMPARED WITH ECG OF 17-MAR-2020 09:34, NO SIGNIFICANT CHANGE WAS FOUND Confirmed by DEJA HACKETT MD ([id number]) on 03/18/2020 2:58:30 PM Referred By: Confirmed By:DEJA HACKETT MD
== END 2020-03-18 12:38 | disposition home or self-care (01) | DRG 310 ==
LOC: JER 11:28 → JERBED 14:21 → OBSVTOIN 17:22 → J4W 03-16 11:25
PROVIDERS: ADMIT Internal Medicine; ATTEND Internal Medicine
DX: I48.0 Paroxysmal atrial fibrillation (principal); I10 Essential (primary) hypertension; E11.9 Type 2 diabetes mellitus without complications; E03.9 Hypothyroidism, unspecified; F41.8 Other specified anxiety disorders; M17.11 Unilateral primary osteoarthritis, right knee; E66.9 Obesity, unspecified; Z68.35 Body mass index [BMI] 35.0-35.9, adult; E78.00 Pure hypercholesterolemia, unspecified; Z96.651 Presence of right artificial knee joint
CPT/HCPCS: 36415; 71045-TC-FY; 71046-TC-FY; 80048; 80053; 80061; 82550; 82962; 83036; 83721; 83735; 84100; 84439; 84443; 84484; 85025; 85027; 85610; 85730; 93005; 93010; 93306-TC; 97116-GP; 97161-GP; 99285-25; G0378; J0131; U0003

== ENCOUNTER 2021-12-08 08:19 | Day surgery (SDC) | payer OTHER ==
[2021-12-05 16:49] VITALS: BMI 32.1
[2021-12-08] MEDS ORDERED: PROPOFOL 20 ML ONE ×2 (08:42)
[2021-12-08] MEDS ORDERED: LIDOCAINE HCL/PF 2% SDV 5ML VIAL ONE (08:42)
[2021-12-08 09:25] VITALS: TEMP 97.5
[2021-12-08 09:42] VITALS: BP 121/66; PULSE 48
== END 2021-12-08 09:52 | disposition home or self-care (01) ==
LOC: FASU-ENDO 08:19
PROVIDERS: ATTEND Internal Medicine Gastroenterology
PROC: 0DB68ZX Excision of Stomach, Via Natural or Artificial Opening Endoscopic, Diagnostic (ICD-10-PCS; 2021-12-08)
PROC: 0DB98ZX Excision of Duodenum, Via Natural or Artificial Opening Endoscopic, Diagnostic (ICD-10-PCS; principal; 2021-12-08 09:02)
DX: K29.50 Unspecified chronic gastritis without bleeding (principal); R13.10 Dysphagia, unspecified; R63.4 Abnormal weight loss
CPT/HCPCS: 82962; 88305-TC; 88342-TC

== ENCOUNTER 2024-04-07 16:50 | Emergency (ER) | payer OTHER ==
[2024-04-07 17:00] VITALS: RESP 18; BMI 26.6
[2024-04-07] MEDS: SODIUM CHLORIDE 0.9% 500 ML INFUS.BAG IV ONE (17:15)
[2024-04-07 17:41] LABS: HEMOGLOBIN 11.8 G/dL (10.7-15.3); MCH 30.3 pg (25.7-33.7); MCHC 32.7 g/dl (32.0-36.0); MEAN CELL VOLUME 92.7 fl (80-96); MEAN PLT VOLUME 7.3 fl (7.5-11.1); PLATELET COUNT 253.5 10^3/uL (134-434); RBC 3.88 10^6/uL (3.60-5.2); RDW 14.4 % (11.6-15.6); WHITE BLOOD COUNT 5.1 10^3/uL (4.0-10.8)
[2024-04-07 17:53] LABS: ALBUMIN 3.9 g/dl (3.4-5.0); BILIRUBIN,TOTAL 0.6 mg/dl (0.2-1); CALCIUM 9.1 mg/dl (8.5-10.1); CREATININE 0.6 mg/dl (0.6-1.3); MAGNESIUM 1.4 mg/dL (1.8-2.4); TOT PROT 6.1 g/dl (6.4-8.2)
[2024-04-07 17:58] LABS: PLATELET ESTIMATE ADEQUATE
[2024-04-07] MEDS ORDERED: MAGNESIUM 1GM/D5W - 1 GM/100 ML IVPB IVPB ONE (18:04)
[2024-04-07] MEDS ORDERED: MAGNESIUM SULFATE IN WATER 2 GM/50 ML IVPB IVPB ONE (18:05)
[2024-04-07] MEDS: MAGNESIUM SULF 50% (8.12 MEQ/2 ML-1 GM VIAL) IVPB ONE (18:10)
[2024-04-07 20:20] VITALS: BP 117/68; PULSE 59; TEMP 97.8
== END 2024-04-07 20:20 | disposition home or self-care (01) ==
LOC: FER 16:50
PROC: 3E033GC Introduction of Other Therapeutic Substance into Peripheral Vein, Percutaneous Approach (ICD-10-PCS; principal; 2024-04-07)
DX: E83.42 Hypomagnesemia (principal); R53.1 Weakness; R63.0 Anorexia; R53.83 Other fatigue; R63.4 Abnormal weight loss; E87.8 Other disorders of electrolyte and fluid balance, not elsewhere classified; Z20.822 Contact with and (suspected) exposure to COVID-19
CPT/HCPCS: 0241U-QW; 36415; 70450-TC; 71045-TC-FY; 80053; 81003; 83735; 84443; 84484; 85027; 87086; 93005; 99285-25

== ENCOUNTER 2024-06-04 16:31 | Emergency (ER) | payer OTHER ==
[2024-06-04 16:44] VITALS: BP 129/70; PULSE 51; RESP 16; TEMP 97.3; BMI 20.1
[2024-06-04 17:35] LABS: HEMATOCRIT 32.7 % (32.4-45.2); HEMOGLOBIN 11.2 G/dL (10.7-15.3); MCH 31.3 pg (25.7-33.7); MCHC 34.2 g/dl (32.0-36.0); MEAN CELL VOLUME 91.5 fl (80-96); MEAN PLT VOLUME 7.4 fl (7.5-11.1); RBC 3.57 10^6/uL (3.60-5.2); RDW 14.1 % (11.6-15.6)
[2024-06-04 18:03] LABS: ALBUMIN 3.8 g/dl (3.4-5.0); ALK PHOS 48 U/L (45-117); ANION GAP 7 mmol/L (4-13); BILIRUBIN,TOTAL 0.6 mg/dl (0.2-1); CALCIUM 9.5 mg/dl (8.5-10.1); CHLORIDE 104 mmol/L (98-107); CO2 28 mmol/L (21-32); CREATININE 0.6 mg/dl (0.6-1.3); GLUCOSE,RANDOM 108 mg/dl (74-106); MAGNESIUM 1.4 mg/dL (1.8-2.4); POTASSIUM 3.9 mmol/L (3.5-5.1); SGOT/AST 13 U/L (15-37); SGPT/ALT 9 U/L (7-52); SODIUM 139 mmol/L (136-145); TOT PROT 5.8 g/dl (6.4-8.2)
[2024-06-04 18:20] LABS: PLATELET ESTIMATE ADEQUATE
[2024-06-04] MEDS ORDERED: MAGNESIUM 1GM/D5W - 1 GM/100 ML IVPB IVPB ONE (19:42)
[2024-06-04] MEDS ORDERED: FUROSEMIDE 40 MG/4 ML INJECTABLE VIAL ONE (19:42)
[2024-06-04] MEDS: FUROSEMIDE 40 MG/4 ML INJECTABLE VIAL IVPUSH ONE (19:48)
[2024-06-04] MEDS: MAGNESIUM SULF 50% (8.12 MEQ/2 ML-1 GM VIAL) IVPB ONE (19:48)
[2024-06-04 20:43] LABS: HIV INTERPRETATION NEGATIVE (NEGATIVE)
== END 2024-06-04 20:18 | disposition home or self-care (01) ==
LOC: FER 16:31
PROC: 3E033GC Introduction of Other Therapeutic Substance into Peripheral Vein, Percutaneous Approach (ICD-10-PCS; principal; 2024-06-04)
PROC: 3E033GC Introduction of Other Therapeutic Substance into Peripheral Vein, Percutaneous Approach (ICD-10-PCS; 2024-06-04)
DX: R41.0 Disorientation, unspecified (principal); M79.89 Other specified soft tissue disorders
CPT/HCPCS: 36415; 70450-TC; 80053; 81003; 81015; 83735; 84439; 84443; 84481; 85027; 86803; 87086; 87389; 93005; 93970-TC; 99285-25

== ENCOUNTER 2024-09-17 04:00 | Emergency (ER) | payer OTHER ==
[2024-09-17 04:19] VITALS: TEMP 97.6; BMI 20.1
[2024-09-17] MEDS ORDERED: ACETAMINOPHEN 325 MG TABLET (FP) ONE (04:54)
[2024-09-17] MEDS: ACETAMINOPHEN 325 MG TABLET (FP) PO ONE (05:10)
[2024-09-17] MEDS ORDERED: LIDOCAINE 2.5%/PRILOCAINE 2.5% (5 Gram/TUBE) TP ONE (05:29)
[2024-09-17] MEDS ORDERED: DIPHTH,PERTUSS(ACELL),TET 0.5 ML DISP.SYRIN IM ONE (06:18)
[2024-09-17] MEDS: DIPHTH,PERTUSS(ACELL),TET 0.5 ML DISP.SYRIN IM ONE (06:20)
[2024-09-17 06:28] VITALS: BP 155/70; PULSE 50; RESP 15
== END 2024-09-17 07:00 | disposition home or self-care (01) ==
LOC: JER 04:00
PROC: 0HQ0XZZ Repair Scalp Skin, External Approach (ICD-10-PCS; principal; 2024-09-17)
PROC: 3E0234Z Introduction of Serum, Toxoid and Vaccine into Muscle, Percutaneous Approach (ICD-10-PCS; 2024-09-17)
DX: S01.01XA Laceration without foreign body of scalp, initial encounter (principal); R42 Dizziness and giddiness; R44.3 Hallucinations, unspecified; Z23 Encounter for immunization; W01.198A Fall on same level from slipping, tripping and stumbling with subsequent striking against other object, initial encounter
CPT/HCPCS: 12002-25; 70450-TC; 71045-TC-FY; 72125-TC; 72170-TC-FY; 73030-TC-LT-FY; 82962; 90471; 90715; 99285-25